=== PATIENT | female | born 1960 | race Two or more races ===

== ENCOUNTER 2025-09-01 13:02 | Inpatient (IN) | payer OTHER, MEDICAID, MEDICARE, SELFPAY ==
[2025-09-01] VITALS (9 sets, daily range): BP systolic 97–130; BP diastolic 65–85; PULSE 87–118; RESP 17–92; TEMP 37.9–40.1; O2SAT 92–96; BMI 39.0
--- NOTE | 2025-09-01 13:49 | XR_ITS ---
Examination: CT brain head without contrast. 2-D sagittal coronal reconstructions Date and time of exam:September 01, 2025, 1449 hrs., Comparison June 01, 2023 Indications: Onset seizures today CTDI: vol (mGy):55.6 DLP: (mGycm):1097 Technique: Multiple CT axial sections of the brain have been obtained, 5 mm slice thickness. Contrast has not been administered. 2-D sagittal, coronal reconstructions have been obtained Low dose protocols were performed. One or more of the following dose reduction techniques were used; automated exposure control, adjustment of the mA and/or KV according to patient size, use of iterative reconstruction technique. Findings: Moderate ventricular enlargement with significant atrophy Intra-axial or extra-axial hemorrhage density is not seen. No mass effect or midline shift Basal cisterns are not remarkable. Fourth ventricle is midline. Cranial vault intact. Acute right maxillary sinusitis Impression: Negative for acute hemorrhage, mass effect or midline shift Advise clinical correlation and follow-up accordingly
--- NOTE | 2025-09-01 13:49 | EKG_ITS ---
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
--- NOTE | 2025-09-01 13:49 | XR_ITS ---
Examination: AP chest single view Technique: Portable sitting AP chest single view Date and time: September 01, 2025, 1350 7:00 PM, comparison February 04, 2023 Indications: Fever beginning 2 days ago. Findings: Air distended stomach with elevation left hemidiaphragm, moderate Suspicious for early bilateral perihilar pneumonia. Mild enlargement cardiac contour with mild to moderate vascular congestion. The osseous structures are intact. Impression: Suspicious for early bilateral perihilar pneumonia
--- NOTE | 2025-09-01 13:51 | PD.EDRME ---
Rapid Medical Screening Exam E Arrival date/time: 09/01/25 13:02 This is a 64-year-old female that is brought in by daughter with multiple complaints. Per patient's daughter patient has a long history of Alzheimer's and was diagnosed approximately 10 years. Per patient's daughter she has been wheelchair bedbound for the last 2 to 3 years. Patient is nonverbal. Per daughter can eat a pur?e liquid diet. Per daughter patient is not acting her normal self. She had an episode where she was shaking and daughter did not know if she was having a seizure. Patient making noises that she typically does not do. Patient was recently seen by her primary doctor and it was suspected that she had a respiratory infection and was given Rocephin in the office. Per daughter that did not seem to help patient still having trouble breathing. I have greeted and performed a focused initial assessment of this patient. Initial appropriate labs ordered at this time. A comprehensive ED assessment and evaluation of the patient and analysis of all test and completion of medical decision making process will be conducted by additional ED provider. Chief Complaint: Flu Like Symptoms Time Seen by Provider: 09/01/25 13:31 Vital signs: Vital Signs Temperature 100.8 F H 09/01/25 13:28 Pulse Rate 109 H 09/01/25 13:28 Respiratory Rate 20 09/01/25 13:28 Blood Pressure 102/69 09/01/25 13:28 Pulse Oximetry (%) 93 L 09/01/25 13:28 Oxygen Delivery Method Room Air 09/01/25 13:28
--- NOTE | 2025-09-01 14:07 | PD.EDADULT ---
ED General RME/HPI General Chief complaint: Flu Like Symptoms Stated complaint: WHEEZING, CONGESTED, SHIVERING, DELUSIONAL Time Seen by Provider: 09/01/25 13:31 Arrival date/time: 09/01/25 13:02 CC: Throat congestion and now with seizure versus shaking HPI throat congestion has been ongoing for 3 weeks per family member. The patient is nonverbal and nonambulatory for at least 5 years. Daughter states that today she noticed that the patient was shaking and thought it was a seizure. Patient is making moaning sounds as she is wheeled in her wheelchair to the bed. RME / HPI RME / HPI narrative: 09/01/25 13:02 This is a 64-year-old female that is brought in by daughter with multiple complaints. Per patient's daughter patient has a long history of Alzheimer's and was diagnosed approximately 10 years. Per patient's daughter she has been wheelchair bedbound for the last 2 to 3 years. Patient is nonverbal. Per daughter can eat a pur?e liquid diet. Per daughter patient is not acting her normal self. She had an episode where she was shaking and daughter did not know if she was having a seizure. Patient making noises that she typically does not do. Patient was recently seen by her primary doctor and it was suspected that she had a respiratory infection and was given Rocephin in the office. Per daughter that did not seem to help patient still having trouble breathing. I have greeted and performed a focused initial assessment of this patient. Initial appropriate labs ordered at this time. A comprehensive ED assessment and evaluation of the patient and analysis of all test and completion of medical decision making process will be conducted by additional ED provider. Related Data Home Medications ?Medication ?Instructions ?Recorded ?Confirmed Losartan Potassium * (COZAAR *) 50 mg PO QDAY #0 tabs 07/03/14 04/10/18 DONEPEZIL HCL 10 mg PO QDAC ##0 02/12/17 04/10/18 Tramadol Hcl 50 mg PO PRN PRN PAIN ##0 02/12/17 04/10/18 meloxicam 15 mg tablet 15 mg PO QDAC ##0 02/12/17 04/10/18 memantine 10 mg tablet (Namenda) 10 mg PO BID #0 tabs 02/12/17 04/10/18 paroxetine HCl 20 mg tablet 20 mg PO QDAC ##0 02/12/17 04/10/18 risperidone 1 mg tablet (Risperdal) 1 mg PO BID #0 tabs 07/15/17 04/10/18 Previous Rx's ?Medication ?Instructions ?Recorded ibuprofen 600 mg tablet 600 mg PO Q6HR PRN PAIN #25 tabs 07/15/17 Allergies Allergy/AdvReac Type Severity Reaction Status Date / Time No Known Allergies Allergy Verified 09/01/25 13:06 Review of Systems Review of Systems ROS Unobtainable: unobtainable due to mental status Past Medical History Past Medical History NEUROLOGIC: Positive Neurological Disorders, Alzheimer's Disease and Migraine CARDIAC: Positive Cardiac Disorders and Hypertension; Negative Congestive Heart Failure RESPIRATORY: Negative Chronic Obstructive Pulmonary Disease (COPD) GASTROINTESTINAL: Positive Gastrointestinal Disorders and Gastroesophageal Reflux Disease GENITOURINARY: Negative Renal Disease MUSCULOSKELETAL: Positive Arthritis ENDOCRINE: Negative Diabetes Mellitus Type 1 or Diabetes Mellitus Type 2 PSYCHO/SOCIAL: Positive Depression OTHER HISTORY: Positive Blood Transfusions Social History SMOKING STATUS: Never smoker ED Exam Narrative Physical exam: [General: Obese, nonverbal Head normocephalic HEENT: Eyes pupils are PERRLA EOMs are intact. Mouth pink dry membranes uvula is midline swallow symmetrical. Nose: No rhinorrhea ears: EAC is occluded with cerumen TMs not visible. Neck is supple coarse end expiratory breath sounds, no stridor, no JVD Chest equal chest rise nontender to palpation Respiratory: Clear to auscultation no wheezes crackles or rubs CV: Rate rhythm is regular no murmurs rubs or clicks Abdomen is distended secondary to body habitus soft, no masses positive bowel sounds all 4 quadrants Back: No CVA tenderness no spinous process tenderness from cervical spine thoracic and lumbar spine Skin: Intact no petechiae rash induration ulceration or crepitus Extremities: Moving all extremity against resistance cap refill less than 2 seconds neurosensory intact Neuro: Baseline nonverbal nonambulatory. Course Course Course Narrative: At 2036, patient's temperature reported to be 104.2 of ordered 1 g of Tylenol IV. Laboratory results clinical finding imaging was discussed with the resident for Dr. Herrera, who agrees except the patient for sepsis UTI and fever. Quality Measures none Orders Category Date Time Status Bedside COVID-19 Antigen Test NOW Care 09/01/25 14:12 Active Physician Practice Coordinator STAT Care 09/01/25 14:15 Active Continuous Pulse Oximetry STAT Care 09/01/25 14:15 Completed EKG (ED ONLY) *Do not use* NOW Care 09/01/25 13:49 Completed In and Out Catheter X1 Care 09/01/25 14:09 Completed In and Out Catheter X1PRN Care 09/01/25 14:15 Completed Insert IV NOW Care 09/01/25 14:15 Active NPO STAT Care 09/01/25 14:15 Active Strict Intake and Output Routine Care 09/01/25 14:[address] abdomen pelvis wo con Stat Exams 09/01/25 16:[address] head/brain wo con Stat Exams 09/01/25 13:49 Completed EKG (ED Only) Stat Exams 09/01/25 13:49 Draft XR chest 1V Stat Exams 09/01/25 13:49 Completed BNP [B-Type Natriuretic Peptide] Stat Lab 09/01/25 14:33 Completed Blood Culture (Lab) Stat Lab 09/01/25 13:50 Ordered Blood Culture (Lab) Stat Lab 09/01/25 14:35 Received CBC Stat Lab 09/01/25 14:33 Completed Comprehensive Metabolic Panel Stat Lab 09/01/25 14:33 Completed Influenza A & B Rapid Panel Stat Lab 09/01/25 14:56 Completed LDH (Lactate Dehydrogenase) Stat Lab 09/01/25 14:33 Completed Lactate (Lactic Acid) Stat Lab 09/01/25 14:33 Completed Lactic Acid, 3 HR Stat Lab 09/01/25 18:06 Completed Lipase Stat Lab 09/01/25 14:33 Completed Magnesium Stat Lab 09/01/25 14:33 Completed PT [Prothrombin Time with INR] Stat Lab 09/01/25 14:33 Completed Partial Thromboplastin Time Stat Lab 09/01/25 14:33 Completed Phosphorous Stat Lab 09/01/25 14:33 Completed Procalcitonin Stat Lab 09/01/25 14:33 Completed Troponin I Stat Lab 09/01/25 14:33 Completed Urinalysis, C/S if Indicated Stat Lab 09/01/25 14:33 Completed Urine Culture Stat Lab 09/01/25 14:33 Received Acetaminophen Ivpb [Ofirmev Inj] Med 09/02/25 00:00 Discontinued 1,000 mg in 100 ml IV Q6HR Acetaminophen Ivpb [Ofirmev Inj] Med 09/01/25 20:38 Active 1,000 mg in 100 ml IV X1 Acetaminophen Supp [Tylenol Supp] Med 09/01/25 14:01 Discontinued 650 mg NH X1 ONE Ringers Lactated 1000 ml [Lactated Ringers] 1,000 ml Med 09/01/25 15:01 Discontinued IV 999 mls/hr Ringers Lactated 1000 ml [Lactated Ringers] 1,000 ml Med 09/01/25 15:01 Discontinued IV 999 mls/hr cefTRIAXone/D5w 1gm IV premix [Rocephin/D5w 1gm IV Med 09/01/25 15:02 Discontinued premix] 1 gm in 50 ml IV X1 Oxygen Delivery NOW RT 09/01/25 14:15 Active Vital Signs Vital signs: Vital Signs Temperature 100.8 F H 09/01/25 13:28 Pulse Rate 109 H 09/01/25 13:28 Respiratory Rate 20 09/01/25 13:28 Blood Pressure 102/69 09/01/25 13:28 Pulse Oximetry (%) 93 L 09/01/25 13:28 Oxygen Delivery Method Room Air 09/01/25 13:28 Discharge Plan Plan Patient Disposition: Other Care w/in Hosp (SDC/COY) Prescriptions/Referrals Prescriptions/Med Rec: No Action Losartan Potassium * (COZAAR *) 50 MG tablet 50 mg PO QDAY Qty: 0 meloxicam 15 MG tablet 15 mg PO QDAC Qty: 0 paroxetine HCl 20 MG tablet 20 mg PO QDAC Qty: 0 memantine [Namenda] 10 MG tablet 10 mg PO BID Qty: 0 DONEPEZIL HCL 10 MG TAB.RAPDIS 10 mg PO QDAC Qty: 0 Tramadol Hcl 50 MG tablet 50 mg PO PRN PRN (Reason: PAIN) Qty: 0 risperidone [Risperdal] 1 MG tablet 1 mg PO BID Qty: 0 ibuprofen 600 MG tablet 600 mg PO Q6HR PRN (Reason: PAIN) Qty: 25 0RF Referrals: Nito Presley MD [Primary Care Provider, Family Practice] - In 1 week Problem List Clinical Impression: UTI (urinary tract infection) Patient/Caregiver Discharge Instructions Print Language: Swiss Stand Alone Forms: [place] Award Info., Patient Portal Info Letter PA/MECHATRONICS TECHNICIAN Supervising Physician PA/MECHATRONICS TECHNICIAN Supervising Physician: Mustapha Dinero ENP [facility] Clinical Information Provided by: patient and family Medical Records reviewed [facility] Meds/Rx considered, not ordered None Labs/Rad/Tests considered, not ordered None Chronic Illness/Social Conditions Explain: Dementia nonverbal nonambulatory EKG Interpretation EKG #1: EKG Interpretation: EKG performed at 1355 shows a ventricular rate of 112 NH interval 166 QRS of 88 QTc of 380 this is sinus tachycardia nonspecific T wave abnormalities. Labs Labs: interpreted by wa Lab(s) Interpretation(s): CBC shows leukocytosis 17.3 no bandemia. No thrombocytopenia Coags within acceptable limits CMP shows no significant electrolyte imbalances other than glucose of 134 no transaminitis or T. bili elevation. Lactic acid of 3.1 Urine yellow hazy 1+ protein 2+ blood leukocyte esterase positive RBCs at 12 WBCs at 232, 1+ bacteria. No squamous epithelial or Influenza AB and COVID are all negative. Imaging Imaging Interpretation(s): CT of the head is negative for any acute finding requires emergent or immediate intervention. Chest x-ray is read as suspicious for bilateral pneumonia. Medication Administration(s) Medication Administration History Acetaminophen (Ofirmev Inj) 1,000 mg in 100 mls @ 250 mls/hr IV X1 ONE Stop: 09/01/25 21:01 Discontinued Medications Acetaminophen (Acetaminophen Supp 650 Mg Supp) 650 mg NH X1 ONE Stop: 09/01/25 14:02 Last Admin: 09/01/25 14:59 Dose: 650 mg Documented By: Lactated Ringer's (Lactated Ringers) 1,000 mls @ 999 mls/hr IV .Q1H1M ONE Stop: 09/01/25 16:01 Last Infusion: 09/01/25 16:12 Dose: Infused Documented By: Admin: 09/01/25 15:06 Dose: 999 mls/hr Documented By: BY Lactated Ringer's (Lactated Ringers) 1,000 mls @ 999 mls/hr IV .Q1H1M ONE Stop: 09/01/25 16:01 Last Infusion: 09/01/25 17:24 Dose: Infused Documented By: Admin: 09/01/25 16:03 Dose: 999 mls/hr Documented By: GM Ceftriaxone Sodium/Dextrose (Rocephin/D5w 1gm Iv Premix) 1 gm in 50 mls @ 100 mls/hr IV X1 ONE Stop: 09/01/25 15:31 Last Infusion: 09/01/25 16:35 Dose: Infused Documented By: Admin: 09/01/25 16:03 Dose: 100 mls/hr Documented By: CORBY Acetaminophen (Ofirmev Inj) 1,000 mg in 100 mls @ 250 mls/hr IV Q6HR VASYL Stop: 09/02/25 18:23
[2025-09-01 14:48] LABS: Lactate (Lactic Acid) 3.1 mMol/L (0.4-2.0)
[2025-09-01 14:51] LABS: Basophils # (Auto) 0.1 Thou/mm3 (0.0-0.2); Basophils % (Auto) 1 % (0-2.5); Eosinophils # (Auto) 0.0 Thou/mm3 (0.0-0.5); Eosinophils % (Auto) 0 % (0-10); Hematocrit 44.0 % (36.0-46.0); Hemoglobin 14.6 g/dL (12.0-16.0); Immature Granulocytes Auto 0.09 Thou/mm3 (0.00-0.00); Lymphocytes # (Auto) 1.0 Thou/mm3 (1.0-4.8); Lymphocytes % (Auto) 6 % (10-50); Mean Corpuscular HGB Conc 33.2 g/dl (31.0-37.0); Mean Corpuscular Hemoglobin 31.1 pg (25.0-35.0); Mean Corpuscular Volume 94 fL (80-100); Monocytes # (Auto) 1.5 Thou/mm3 (0.0-0.8); Monocytes % (Auto) 9 % (0-12); Neutrophils # (Auto) 14.6 Thou/mm3 (1.8-7.7); Neutrophils % (Auto) 84 % (37-80); Nucleated Red Blood Cell # 0.00 Thou/mm3 (0.00-0.00); Nucleated Red Blood Cell % 0 /100 WBC (0); Platelet Count 207 Thou/mm3 (140-440); RDW Standard Deviation 44.2 fL (36.4-46.3); Red Blood Count 4.70 Miln/mm3 (4.00-5.20); White Blood Count 17.3 Thou/mm3 (3.6-11.0)
[2025-09-01 14:54] LABS: Collection Type, Urine Catheter
[2025-09-01] MEDS: ACETAMINOPHEN SUPP 650 MG SUPP PR (14:59)
[2025-09-01] MEDS: RINGERS LACTATED 1000 ML 1,000 ML 999 ML IV ×2 (15:06→16:03)
[2025-09-01 15:09] LABS: INR 1.0 (0.9-1.3); Partial Thromboplastin Time 26.3 Seconds (22.0-36.0); Prothrombin Time 10.9 Seconds (9.0-12.2)
[2025-09-01 15:17] LABS: Alanine Aminotransferase 31 U/L (10-49); Albumin, Serum 4.7 gm/dL (3.4-4.8); Albumin/Globulin Ratio 1.6 (1.2-2.2); Alkaline Phosphatase 67 U/L (46-116); Anion Gap 12 (7-16); Aspartate Amino Transferase 21 U/L (0-34); BUN/Creatinine Ratio 15 Ratio (12-20); Bilirubin,Total 0.9 mg/dL (0.3-1.2); Blood Urea Nitrogen 12 mg/dL (9-23); Calcium 9.4 mg/dL (8.3-10.6); Calcium (Corrected) 9.4 mg/dL (8.5-10.1); Carbon Dioxide 22.8 mMol/L (20.0-31.0); Chloride 107 mMol/L (98-107); Creatinine (Component) 0.8 mg/dL (0.6-1.3); Estimated Creatinine Clearance 71.3 mL/min (>60); Globulin 3.0 gm/dL (2.3-3.5); Glucose 134 mg/dL (74-106); LDH (Lactate Dehydrogenase) 198 U/L (120-246); Lipase 31 U/L (12-53); Magnesium 2.0 mg/dL (1.6-2.6); Osmolality,Calculated 284 (275-295); Phosphorous 2.4 mg/dL (2.4-5.1); Potassium 3.7 mMol/L (3.4-5.1); Procalcitonin 0.14 ng/ml (0.0-0.49); Sodium 142 mMol/L (136-145); Total Protein 7.7 gm/dL (5.7-8.2); Troponin I < 0.002 ng/mL (0.0-0.045); eGFR > 60 See Note
[2025-09-01 15:25] LABS: Influenza A Ag Negative; Influenza B Ag Negative
[2025-09-01 15:36] LABS: Bacteria,Urine 1+; Bilirubin,Urine Negative (Negative); Blood,Urine 2+ (Negative); Color,Urine Yellow (Lt Yel-Yel); Glucose, Urine Negative (Negative); Ketones,Urine Negative (Negative); Leukocyte Esterase,Urine Positive (Negative); Nitrite,Urine Negative (Negative); PH,Urine 5.5 (5.0-7.0); Protein,Urine 1+ (Neg - Trace); RBC,Urine 12 /hpf (0-3); Specific Gravity,Urine 1.021 (1.001-1.035); Squamous Epithelial Cell,Urine 1 /hpf (0-5); Urobilinogen,Urine Negative mg/dL (0.0-1.0); WBC,Urine 232 /hpf (0-5)
[2025-09-01 15:37] LABS: Clarity,Urine Hazy (Clear/Hazy); Culture Indicated,Urine Yes
[2025-09-01 16:03] LABS: B-Type Natriuretic Peptide < 20 pg/mL (0-100)
[2025-09-01] MEDS: cefTRIAXone/D5w 1gm IV premix 1 GM/50 ML BAG IV (16:03)
--- NOTE | 2025-09-01 16:35 | XR_ITS ---
Examination: CT abdomen and pelvis without contrast. Coronal 3-D reconstructions. Sagittal 2-D reconstructions. Date and time of exam:September 01, 2025 1653 hrs. Indications: Sepsis alert today CTDI: vol (mGy): 20.6 DLP: (mGycm): 1170 Technique: Axial images of the abdomen have been obtained, 3 mm slice thickness Intravenous contrast material has not been administered. Low dose protocols were performed. One or more of the following dose reduction techniques were used; automated exposure control, adjustment of the mA and/or KV according to patient size, use of iterative reconstruction technique. Findings: Atelectasis in the lower lung zones with minimal pleural fluid Fatty infiltration throughout the liver, hepatomegaly 24 cm Contracted gallbladder. Spleen is not enlarged No pancreatic or adrenal mass No renal or ureteral calculi, no hydronephrosis Aorta normal size Normal appendix No bowel obstruction Colonic diverticulosis, no diverticulitis Absent uterus Urinary bladder wall shows irregular thickening up to 12 mm Moderate degenerative disc disease lower dorsal levels and L5-S1 Impression: Significant hepatomegaly, fatty infiltration throughout the liver No renal or ureteral calculi, no hydronephrosis Normal appendix Colonic diverticulosis, no diverticulitis Abnormal thickening of the urinary bladder wall up to 12 mm, differential would include cystitis, early bladder carcinoma not excluded, clinical correlation and follow-up advised
[2025-09-01 17:55] LABS: Reflex Lactate? Y
[2025-09-01 18:12] LABS: Lactic Acid, 3 HR 2.5 mMol/L (0.4-2.0)
[2025-09-01] MEDS: ACETAMINOPHEN IVPB 1,000 MG/100 ML VIAL 250 MG IV (20:44)
[2025-09-01] MEDS: RINGERS LACTATED 1000 ML 1,000 ML 75 ML IV (21:47)
[2025-09-01] MEDS: AZITHROMYCIN INJ 500 MG in SODIUM CHLORIDE 0.9% 250 ML 250 ML 250 MG IV (21:47)
[2025-09-01] MEDS: HEPARIN SOD INJ 5000 UNIT/ML VIAL SC (21:49)
[2025-09-01] MEDS: ALBUTEROL/IPRATROPIUM (Duoneb) RT SOL 3 ML NEBU INH (22:14)
--- NOTE | 2025-09-01 22:42 | PD.RESHP ---
Documentation for date of: 09/01/25 HPI History of Present Illness History of present illness: Ms. Jackson is a 64 y/o woman with PMH bedbound and nonverbal 2/2 Alzheimer's disease, HTN, HLD, asthma (not on home inhalers) who presents to the ED on 09/01 for a witnessed generalized shaking episode c/f seizure that lasted 10-15 min that resolved on its own i/s/o recent respiratory infection. She is accompanied by daughter, Caren, who provides history. Patient has had a productive cough for about 3 weeks that worsened 3 days ago. She was seen in outpatient clinic 1 week ago and given one dose of Rocephin IM, but patient continued to be symptomatic. Denies subjective fever at home. She is able to cough mucus up but cannot spit it out. Patient's daughter has been using suction in ED but does not have this at home. Denies recent illnesses or hospitalizations prior to 3 weeks of cough. Patient has had 1 UTI / year for the past 3 years. Denies hx of COPD or seizures, not on home O2. Patient has never had an episode like this before. ED course: T 104.2, HR 109-118, RR 20-24, spO2 93% RA --> 96% 2L, BP 97/65 - 102/69. Labs significant for WBC 17.3 with neutrophilic predominance. LA 3.1 --> 2.5 after fluids. UA 1+ protein, 2+ blood, 12 RBC, 232 WBC, 1+ bacteria. Pending blood and urine cx. CXR showed perihilar opacities c/f PNA, vascular congestion, distended stomach. EKG sinus tachy 112, QTc 429. CT a/p showed cystitis max 12 mm, hepatomegaly (w/ fatty infiltration). Meds given: Tylenol 650 mg PO, Tylenol 1g IV, 2L LR, Ceftriaxone 1g IV x1. PMHx: bedbound and nonverbal 2/2 Alzheimer's disease, asthma Allergies: NKDA Home meds: Lorazapam BID, Memantine BID, Losartan, Risperidone BID, Simvastatin daily, Citalopram daily (no doses listed). Pending med rec. Pharmacy: [facility] SgHx: Hysterectomy SHx: Denies tobacco, EtOH, recreational drug use. Lives at home with daughter. FHx: Mom - Alzheimer's, Dad - T2DM Review of Systems Review of Systems Narrative Review of Systems: 14 point ROS negative other than HPI Exam Vital Signs Temp Pulse Resp BP Pulse Ox O2 Del Method O2 Flow Rate 101 F H 96 18 107/85 H 94 L Nasal Cannula 2 09/01/25 22:00 09/01/25 22:00 09/01/25 22:00 09/01/25 22:00 09/01/25 22:00 09/01/25 22:00 09/01/25 22:00 Narrative Exam General: Lying in bed, acute distress, non-toxic appearing Eye: PERRL, EOMI HENT: Normocephalic, atraumatic Neck: Supple, non-tender, no JVD Lungs: Shallow breaths, some crackles throughout, productive cough symmetric chest rise, no use of accessory muscles. Desat to 92% on RA, requiring 2L O2 for appropriate spO2. Heart: Normal S1 and S2, no S3 or S4 appreciated. Normal rate and regular rhythm, no murmurs, rubs gallops, or edema. Peripheral pulses intact bilaterally, capillary refill brisk distally Abdomen: Soft, non-tender,distended, normal bowel sounds. No guarding or rebound tenderness. Musculoskeletal: Normal range of motion and strength, no tenderness or swelling Skin: Skin is warm, dry, no rashes or lesions. Neurologic: Awake and alert. Nonverbal and nonambulatory at baseline. Does not follow commands. Results: Labs 09/01/25 14:33 09/01/25 14:33 Labs: Short CBC 09/01/25 Range/Units 14:33 WBC 17.3 H (3.6-11.0) Thou/mm3 Hgb 14.6 (12.0-16.0) g/dL Hct 44.0 (36.0-46.0) % Plt Count 207 (140-440) Thou/mm3 BMP 09/01/25 14:33 Sodium 142 Potassium 3.7 Chloride 107 Carbon Dioxide 22.8 BUN 12 Creatinine 0.8 Glucose 134 H Calcium 9.4 Cardiac Enzymes 09/01/25 Range/Units 14:33 Troponin I < 0.002 (0.0-0.045) ng/mL Liver Function 09/01/25 Range/Units 14:33 Total Bilirubin 0.9 (0.3-1.2) mg/dL AST 21 (0-34) U/L ALT 31 (10-49) U/L Alkaline Phosphatase 67 (46-116) U/L Albumin 4.7 (3.4-4.8) gm/dL Urine 09/01/25 Range/Units 14:33 Urine Color Yellow (Lt Yel-Yel) Urine Clarity Hazy (Clear/Hazy) Urine pH 5.5 (5.0-7.0) Ur Specific [place] 1.021 (1.001-1.035) Urine Protein 1+ A (Neg - Trace) Urine Glucose (UA) Negative (Negative) Quality Measures Quality Measures none Medications Home Medications and Allergies Home Medications ?Medication ?Instructions ?Recorded ?Confirmed ?Type Losartan Potassium * (COZAAR *) 50 mg PO QDAY #0 tabs 07/03/14 09/02/25 History DONEPEZIL HCL 10 mg PO QDAC ##0 02/12/17 04/10/18 History Tramadol Hcl 50 mg PO PRN PRN PAIN ##0 02/12/17 04/10/18 History meloxicam 15 mg tablet 15 mg PO QDAC ##0 02/12/17 04/10/18 History memantine 10 mg tablet (Namenda) 10 mg PO BID #0 tabs 02/12/17 09/02/25 History paroxetine HCl 20 mg tablet 20 mg PO QDAC ##0 02/12/17 04/10/18 History risperidone 1 mg tablet (Risperdal) 1 mg PO BID #0 tabs 07/15/17 09/02/25 History citalopram 20 mg tablet 20 mg PO HS 09/02/25 09/02/25 History lorazepam 1 mg tablet 1 mg PO BID 09/02/25 09/02/25 History simvastatin 20 mg tablet 20 mg PO HS 09/02/25 09/02/25 History Allergies Allergy/AdvReac Type Severity Reaction Status Date / Time No Known Allergies Allergy Verified 09/01/25 13:06 Visit Medications Acetaminophen (Acetaminophen 325 Mg Tablet) 650 mg PO Q6H PRN PRN Reason: Fever >101.5 Stop: 10/01/25 21:21 Acetaminophen (Acetaminophen 325 Mg Tablet) 650 mg PO Q6H PRN PRN Reason: PAIN SCALE 1-3 (mild Stop: 10/01/25 21:21 Albuterol/Ipratropium (Albuterol/Ipratropium (Duoneb) Rt Margarita 3 Ml Nebu) 3 ml INH Q4HRRT SILVIA Stop: 10/01/25 22:59 Last Admin: 09/01/25 22:14 Dose: 3 ml Guaifenesin (Guaifenesin Syrup 200 Mg/10 Ml Udc) 100 mg PO QID PRN; Protocol PRN Reason: COUGH Stop: 10/01/25 21:27 Heparin Sodium (Porcine) (Heparin Sod Inj 5000 Unit/Ml Vial) 5,000 unit SC Q8HR SILVIA Stop: 09/15/25 21:59 Last Admin: 09/01/25 21:49 Dose: 5,000 unit Lactated Ringer's (Lactated Ringers) 1,000 mls @ 75 mls/hr IV .[id number] SILVIA Stop: 10/01/25 21:29 Last Admin: 09/01/25 21:47 Dose: 75 mls/hr Ceftriaxone Sodium/Dextrose (Rocephin/D5w 1gm Iv Premix) 1 gm in 50 mls @ 100 mls/hr IV QDAY [facility] Stop: 09/08/25 21:25 Azithromycin 500 mg/ Sodium (Chloride) 250 mls @ 250 mls/hr IV QDAY SILVIA Stop: 09/08/25 21:26 Azithromycin 500 mg/ Sodium (Chloride) 250 mls @ 250 mls/hr IV X1 ONE Stop: 09/01/25 22:44 Last Admin: 09/01/25 21:47 Dose: 250 mls/hr Ibuprofen (Ibuprofen Tab 400 Mg Tablet) 400 mg PO Q6HR PRN PRN Reason: Fever > 100.3 Stop: 10/01/25 21:21 Ondansetron HCl (Ondansetron Inj 2 Mg/Ml Inj 2 Ml) 4 mg IVP Q6H PRN; Protocol PRN Reason: NAUSEA OR VOMITING Stop: 10/01/25 21:21 Discontinued Medications Acetaminophen (Acetaminophen Supp 650 Mg Supp) 650 mg DE X1 ONE Stop: 09/01/25 14:02 Last Admin: 09/01/25 14:59 Dose: 650 mg Lactated Ringer's (Lactated Ringers) 1,000 mls @ 999 mls/hr IV .Q1H1M ONE Stop: 09/01/25 16:01 Last Infusion: 09/01/25 16:12 Dose: Infused Lactated Ringer's (Lactated Ringers) 1,000 mls @ 999 mls/hr IV .Q1H1M ONE Stop: 09/01/25 16:01 Last Infusion: 09/01/25 17:24 Dose: Infused Ceftriaxone Sodium/Dextrose (Rocephin/D5w 1gm Iv Premix) 1 gm in 50 mls @ 100 mls/hr IV X1 ONE Stop: 09/01/25 15:31 Last Infusion: 09/01/25 16:35 Dose: Infused Acetaminophen (Ofirmev Inj) 1,000 mg in 100 mls @ 250 mls/hr IV Q6HR SILVIA Stop: 09/02/25 18:23 Acetaminophen (Ofirmev Inj) 1,000 mg in 100 mls @ 250 mls/hr IV X1 ONE Stop: 09/01/25 21:01 Last Infusion: 09/01/25 21:08 Dose: Infused Sodium Chloride (Sodium Chloride Rt 10% 15 Ml Nebu) 5 ml INH X1 ONE Stop: 09/01/25 21:23 Assessment & Plan Plan Ms. Jackson is a 64 y/o woman with PMH bedbound and nonverbal 2/2 Alzheimer's disease, HTN, HLD, asthma who presents to the ED on 09/01 for a witnessed generalized shaking episode c/f seizure that lasted 10-15 min that resolved on its own i/s/o recent respiratory infection. She is accompanied by daughter, Caren, who provides history. Patient has had a productive cough for about 3 weeks that worsened 3 days ago. She was seen in outpatient clinic 1 week ago and given one dose of Rocephin IM, but patient continued to be symptomatic. Denies subjective fever at home. She is able to cough mucus up but cannot spit it out. Patient's daughter has been using suction in ED but does not have this at home. Denies recent illnesses or hospitalizations prior to 3 weeks of cough. Patient has had 1 UTI / year for the past 3 years. Denies hx of COPD or seizures, not on home O2. Patient has never had an episode like this before. #Sepsis 2/2 UTI vs PNA #Acute on chronic hypoxic respiratory failure #Community acquired pneumonia Productive cough x3 weeks (acutely worsening x 3 days) with fever, tachycardia, tachypnea, spO2 desatting requiring supplemental O2, leukocytosis w/ neutrophilic predominance, and perihilar opacities on CXR c/f PNA LA 3.1 --> 2.5 after fluids Given Tylenol 650 mg PO, Tylenol 1g IV, 2L LR, Ceftriaxone 1g IV x1 Plan: - Pending blood cx, sputum cx and gram stain - Ceftriaxone 1g IV daily and Azithromycin 500 mg IV daily for gram positive, gram negative, and atypical coverage - Duoneb q4h with frequent suctioning - Continuous pulse ox with supplemental O2 PRN. Wean as tolerated when appropriate - Guaifenesin QID - LR 75 mL/hr #UTI Hx 1 UTI/yr x 3 years Plan: - Pending urine cx - Ceftriaxone 1g IV daily #Witnessed shaking Pt has no hx of seizures Plan: - Management of CAP and UTI as above - Likely shivers as patient had temp of 104.5 #Hypertension Home med: Losartan (unkonwn dose) Plan: - Pending med rec - Hold antihypertensives given soft BP at this time #Hyperlipidemia Home med: simvastatin (unknown dose) Plan: - Pending med rec #Abdominal distension Patient has not had a BM today, had a normal BM yesterday Plan: - Doc/senna silvia daily #Alzheimer's disease Nonverbal, nonambulatory at baseline Home meds: Lorazapam BID, Memantine BID, Risperidone BID, Citalopram daily Plan: - Pending med rec - Started Lorazapam 0.5 mg PO BID, Risperidone 1 mg PO BID, Citalopram 10 mg PO daily . Can change once med rec results Checklist Dispo: Admit to med tele for IV abx Diet: NPO pending swallow study. At home, pt eats pur?e liquid diet. Bowel Reg: Doc-senna silvia daily VTE ppx: heparin subQ GI ppx: n/a Pain mgmt: Tylenol PRN Code status: DNR Plan discussed with Dr. Whelan and Dr. oJse Broussard MD PGY1 Attending Provider Attestation/Addendum After examination of the patient and review of the clinical data I feel that this patient needs admission to the hospital for further treatment/evaluation. Plan of care discussed with patient and is in agreement. I Jonathon Garcia MD, attest that I was physically present for xie portions of evaluation, and examined patient, labs and imagings and plan of care were discussed with IM residents team, and I agree with the findings and plans documented above.
--- NOTE | 2025-09-01 23:19 | PC.NURSE ---
Report given to CHARO Stark
[2025-09-02] VITALS (17 sets, daily range): BP systolic 90–114; BP diastolic 56–77; PULSE 81–115; RESP 18–22; TEMP 36.1–38.4; O2SAT 89–98; BMI 35.2
[2025-09-02 05:34] LABS: Basophils # (Auto) 0.1 Thou/mm3 (0.0-0.2); Basophils % (Auto) 1 % (0-2.5); Eosinophils # (Auto) 0.0 Thou/mm3 (0.0-0.5); Eosinophils % (Auto) 0 % (0-10); Hematocrit 44.7 % (36.0-46.0); Hemoglobin 14.5 g/dL (12.0-16.0); Immature Granulocytes Auto 0.08 Thou/mm3 (0.00-0.00); Lymphocytes # (Auto) 1.0 Thou/mm3 (1.0-4.8); Lymphocytes % (Auto) 7 % (10-50); Mean Corpuscular HGB Conc 32.4 g/dl (31.0-37.0); Mean Corpuscular Hemoglobin 31.4 pg (25.0-35.0); Mean Corpuscular Volume 97 fL (80-100); Monocytes # (Auto) 0.2 Thou/mm3 (0.0-0.8); Monocytes % (Auto) 1 % (0-12); Neutrophils # (Auto) 14.0 Thou/mm3 (1.8-7.7); Neutrophils % (Auto) 91 % (37-80); Nucleated Red Blood Cell # 0.00 Thou/mm3 (0.00-0.00); Nucleated Red Blood Cell % 0 /100 WBC (0); Platelet Count 161 Thou/mm3 (140-440); RDW Standard Deviation 45.9 fL (36.4-46.3); Red Blood Count 4.62 Miln/mm3 (4.00-5.20); White Blood Count 15.4 Thou/mm3 (3.6-11.0)
[2025-09-02 06:01] LABS: Anion Gap 13 (7-16); BUN/Creatinine Ratio 11 Ratio (12-20); Blood Urea Nitrogen 9 mg/dL (9-23); Calcium 9.0 mg/dL (8.3-10.6); Carbon Dioxide 23.6 mMol/L (20.0-31.0); Chloride 106 mMol/L (98-107); Creatinine (Component) 0.8 mg/dL (0.6-1.3); Estimated Creatinine Clearance 67.3 mL/min (>60); Glucose 180 mg/dL (74-106); Magnesium 1.8 mg/dL (1.6-2.6); Osmolality,Calculated 288 (275-295); Phosphorous 3.1 mg/dL (2.4-5.1); Potassium 4.0 mMol/L (3.4-5.1); Sodium 143 mMol/L (136-145); eGFR > 60 See Note
[2025-09-02] MEDS: ALBUTEROL/IPRATROPIUM (Duoneb) RT SOL 3 ML NEBU INH ×5 (06:19→23:18)
[2025-09-02] MEDS: HEPARIN SOD INJ 5000 UNIT/ML VIAL SC ×3 (07:28→21:13)
[2025-09-02 09:04] LABS: Lactate (Lactic Acid) 2.1 mMol/L (0.4-2.0)
--- NOTE | 2025-09-02 09:19 | PC.SS ---
Follow up note: On IV antibiotic.
[2025-09-02] MEDS: PIPER/TAZO 3.375 GM PREMIX 3.375 GM/50 ML BAG IV ×3 (09:46→21:13)
[2025-09-02] MEDS: Magnesium Sulfate 4 GM Ivpb 4 GM/50 ML BAG IV (09:46)
[2025-09-02] MEDS: VANCOMYCIN/NS 1 GM IVPB 200 ML IV ×2 (11:14→22:04)
--- NOTE | 2025-09-02 11:53 | PCS.ST ---
Swallowing evaluation completed. See report for details. Oral dysphagia. No s/s of aspiration. Needs minced moist diet.
--- NOTE | 2025-09-02 11:56 | ESPR_ITS ---
<Statement entered by Lemuel Torres MD - 09/02/25 18:47> I have personally seen and examined the patient. I agree with the medical student's assessment and plan as documented below. Lemuel Torres DO PGY-2 Internal Medicine - GME Documentation for date of: 09/02/25 Subjective Subjective Interval history: No acute events overnight. Patient is nonverbal at baseline due to history of Alzheimer's, she was last known to be talking about 5 years ago. Patient was asleep on encounter. Daughter reported that patient is usually more alert than current state and communicates via hand movements and yelling for food or when in pain. Patient has history of hemorrhoids as well that causes constipation. Patient's last bowel movement was last Tuesday. She takes Miralax for the constipation. Today patient has continued productive cough and is on room air. She does not take oxygen at home. Exam Vital Signs Temp Pulse Resp BP Pulse Ox O2 Del Method O2 Flow Rate 98.3 F 98 20 90/62 93 L Room Air 3 09/02/25 11:17 09/02/25 11:17 09/02/25 11:17 09/02/25 11:17 09/02/25 11:17 09/02/25 11:17 09/02/25 10:48 Narrative Exam General: Patient asleep, snoring loudly, in mild distress. Appears lethargic and not alert. Nonverbal and nonambulatory. HEENT: Normocephalic, atraumatic. PERRLA, EOMI. Audible upper airway congestion. Cardiac: Regular rate and rhythm, normal S1/S2, no murmurs, rubs, or gallops. Peripheral pulses 2+ and symmetric. No peripheral edema. Lungs: Mildly increased work of breathing. Productive cough with thick phlegm noted. Auscultation limited; no distinct crackles or wheezes appreciated. Abdomen: Soft, non-tender, non-distended. Extremities: Warm, well-perfused. Skin: Warm, dry, intact. No rashes, lesions, or ecchymoses. Neuro: Lethargic, nonverbal, not following commands. Objective Labs 09/03/25 05:05 09/03/25 05:05 Labs: Laboratory Results - last 24 hr 09/01/25 09/01/25 09/01/25 14:33 14:56 18:06 WBC 17.3 H RBC 4.70 Hgb 14.6 Hct 44.0 MCV 94 MCH 31.1 MCHC 33.2 RDW Std Deviation 44.2 Plt Count 207 Neut % (Auto) 84 H Lymph % (Auto) 6 L [place] % (Auto) 9 Eos % (Auto) 0 Baso % (Auto) 1 Neut # (Auto) 14.6 H Lymph # (Auto) 1.0 [place] # (Auto) 1.5 H Eos # (Auto) 0.0 Baso # (Auto) 0.1 Immature Gran # (Auto) 0.09 H Absolute Nucleated RBC 0.00 Immature Gran % 1 H Nucleated RBC % 0 PT 10.9 INR 1.0 APTT 26.3 Sodium 142 Potassium 3.7 Chloride 107 Carbon Dioxide 22.8 Anion Gap 12 BUN 12 Creatinine 0.8 Estim Creat Clear Calc 71.3 eGFR > 60 BUN/Creatinine Ratio 15 Glucose 134 H Calculated Osmolality 284 Lactic Acid 3.1 H 2.5 H Calcium 9.4 Corrected Calcium 9.4 Phosphorus 2.4 Magnesium 2.0 Total Bilirubin 0.9 AST 21 ALT 31 Alkaline Phosphatase 67 Lactate Dehydrogenase 198 Troponin I < 0.002 B-Natriuretic Peptide < 20 Total Protein 7.7 Albumin 4.7 Globulin 3.0 Albumin/Globulin Ratio 1.6 Lipase 31 Procalcitonin 0.14 Ur Collection Type Catheter Urine Color Yellow Urine Clarity Hazy Urine pH 5.5 Ur Specific [place] 1.021 Urine Protein 1+ A Urine Glucose (UA) Negative Urine Ketones Negative Urine Blood 2+ A Urine Nitrite Negative Urine Bilirubin Negative Urine Urobilinogen (Auto) Negative Ur Leukocyte Esterase Positive Urine RBC 12 H Urine WBC 232 H Ur Squamous Epith Cells 1 Urine Bacteria 1+ A Ur Culture Indicated? Yes Influenza A (Rapid) Negative Influenza B (Rapid) Negative 09/02/25 09/02/25 05:21 08:49 WBC 15.4 H RBC 4.62 Hgb 14.5 Hct 44.7 MCV 97 MCH 31.4 MCHC 32.4 RDW Std Deviation 45.9 Plt Count 161 D Neut % (Auto) 91 H Lymph % (Auto) 7 L [place] % (Auto) 1 Eos % (Auto) 0 Baso % (Auto) 1 Neut # (Auto) 14.0 H Lymph # (Auto) 1.0 [place] # (Auto) 0.2 Eos # (Auto) 0.0 Baso # (Auto) 0.1 Immature Gran # (Auto) 0.08 H Absolute Nucleated RBC 0.00 Immature Gran % 1 H Nucleated RBC % 0 PT INR APTT Sodium 143 Potassium 4.0 Chloride 106 Carbon Dioxide 23.6 Anion Gap 13 BUN 9 Creatinine 0.8 Estim Creat Clear Calc 67.3 eGFR > 60 BUN/Creatinine Ratio 11 L Glucose 180 H Calculated Osmolality 288 Lactic Acid 2.1 H Calcium 9.0 Corrected Calcium Phosphorus 3.1 Magnesium 1.8 Total Bilirubin AST ALT Alkaline Phosphatase Lactate Dehydrogenase Troponin I B-Natriuretic Peptide Total Protein Albumin Globulin Albumin/Globulin Ratio Lipase Procalcitonin Ur Collection Type Urine Color Urine Clarity Urine pH Ur Specific [place] Urine Protein Urine Glucose (UA) Urine Ketones Urine Blood Urine Nitrite Urine Bilirubin Urine Urobilinogen (Auto) Ur Leukocyte Esterase Urine RBC Urine WBC Ur Squamous Epith Cells Urine Bacteria Ur Culture Indicated? Influenza A (Rapid) Influenza B (Rapid) Quality Measures Quality Measures none Assessment & Plan Assessment Current Active Medications: Generic Name Dose Route Start Last Admin Trade Name Freq PRN Reason Stop Dose Admin Acetaminophen 650 mg 09/01/25 21:22 Acetaminophen 325 Mg Tablet PO 10/01/25 21:21 Q6H PRN PAIN SCALE 1-3 (mild Acetaminophen 650 mg 09/02/25 08:13 Acetaminophen 325 Mg Tablet PO 10/01/25 21:21 Q6H PRN Fever >100.3 Protocol Albuterol/Ipratropium 3 ml 09/01/25 23:00 09/02/25 10:46 Albuterol/Ipratropium (Duoneb) Rt Margarita 3 Ml Nebu INH 10/01/25 22:59 3 ml Q4HRRT SILVIA Administration Citalopram Hydrobromide 20 mg 09/02/25 21:00 Citalopram 20 Mg Tablet PO 10/02/25 20:59 HS SILVIA Guaifenesin 100 mg 09/01/25 21:28 Guaifenesin Syrup 200 Mg/10 Ml Udc PO 10/01/25 21:27 QID PRN COUGH Protocol Heparin Sodium (Porcine) 5,000 unit 09/01/25 22:00 09/02/25 07:28 Heparin Sod Inj 5000 Unit/Ml Vial SC 09/15/25 21:59 5,000 unit Q8HR SILVIA Administration Piperacillin/Tazobactam/Dextrose 3.375 gm in 50 mls @ 100 mls/hr 09/02/25 06:21 09/02/25 09:46 Zosyn IV 09/09/25 06:20 100 mls/hr Q8HR SILVIA Administration Protocol Vancomycin/Sodium Chloride 200 mls @ 120 mls/hr 09/02/25 10:00 09/02/25 11:14 Vancomycin/Ns 1 Gm Ivpb IV 09/09/25 09:59 120 mls/hr Q12H SILVIA Administration Protocol Magnesium Sulfate 4 gm in 50 mls @ 12.5 mls/hr 09/02/25 08:30 09/02/25 09:46 Magnesium Sulfate Ivpb IV 09/02/25 12:29 12.5 mls/hr X1 ONE Administration Ibuprofen 400 mg 09/01/25 21:22 Ibuprofen Tab 400 Mg Tablet PO 10/01/25 21:21 Q6HR PRN Fever > 100.3 Protocol Lorazepam 0.5 mg 09/01/25 23:45 09/02/25 00:00 Lorazepam 0.5 Mg Tablet PO 09/06/25 23:44 Not Given On Hold: 09/02/25 03:23 BID SILVIA Memantine 10 mg 09/02/25 09:00 09/02/25 09:32 Memantine Hcl 5 Mg Tablet PO 10/02/25 08:59 Not Given BID SILVIA Ondansetron HCl 4 mg 09/01/25 21:22 Ondansetron Inj 2 Mg/Ml Inj 2 Ml IVP 10/01/25 21:21 Q6H PRN NAUSEA OR VOMITING Protocol Pharmacy Consult 1 each 09/02/25 09:00 Vancomycin Pharmacy To Dose 1 Each Each IV 10/02/25 08:59 QDAY PRN PROTOCOL Polyethylene Glycol 17 gm 09/02/25 11:00 Polyethylene Glycol 17 Gm Packet PO 10/02/25 10:59 QDAY SILVIA Risperidone 1 mg 09/02/25 09:00 09/02/25 09:32 Risperidone 1 Mg Tablet PO 10/02/25 08:59 Not Given BID SILVIA Sennosides 1 tab 09/02/25 09:00 09/02/25 09:32 Senna/Docusate Sod 1 Tab Tablet PO 10/02/25 08:59 Not Given QDAY SILVIA Protocol Plan 64 yo female with PMHx of Alzheimer's disease, HTN, HLD, asthma, and hemorrhoids presented with generalized shaking episode in setting of high fevers admitted for the evaluation and management of pneumonia and UTI. #Sepsis 2/2 UTI vs PNA #Acute on chronic hypoxic respiratory failure 2/2 CAP Patient meets sepsis criteria due to fever, tachycardia, tachypnea, leukocytosis with neutrophilic predominance and end organ damage as seen by elevated lactate 3.1 on admission. Patient was experiencing productive cough for x3 weeks with acute worsening in the last 3 days c/f community acquired pneumonia. Outpatient PCP treated her with one time dose of Rocephin that was not continued due to lack of patient followup. Chest X-ray shows early bilateral perihilar pneumonia. Gram stain blood culture was significant for gram negative rods. Abdomen/Pelvis CT shows abnormal thickening of urinary bladder up to 12 mm c/f cystitis and less likely early bladder carcinoma. UA was significant for 1+ bacteria and 232 WBC c/f possible UTI. She has history of 1 UTI/yr for 3 years. Plan: - Pending blood culture, urine culture, sputum culture - Continue IV Piperacillin/Tazobactam for broad spectrum coverage - Order for Chest Physiotherapy - Duoneb q4h with frequent suctioning - Continuous pulse ox with supplemental O2 PRN. Wean as tolerated when appropriate - Guaifenesin QID #Hemorrhoids #Constipation #Abdominal Distension Patient has known history of hemorrhoids. She reports being constipated and has not had a bowel movement since 08/31. Plan: - Continue Senna/Docusate 1 tab PO qday - Start 17gm Polyethylene Glycol PO qday #Alzheimer's disease Nonverbal, nonambulatory at baseline. Home meds: Lorazapam 1mg BID, Memantine 10 mg BID, Risperidone 1mg BID, Citalopram 20 mg daily Plan: - Hold Lorazapam 1 mg PO BID given decreased alertness and risk of respiratory depression and aspiration - Continue Risperidone 1 mg PO BID, Citalopram 20 mg PO daily #Hypertension Home med: Losartan 50 mg Plan: - Hold antihypertensives given soft BP at this time #Hyperlipidemia Home med: Simvastatin 20 mg Plan: - Hold Simvastatin 20 mg Checklist Dispo: Admit to med [facility] for IV abx Diet: NPO pending swallow study. At home, pt eats pur?e liquid diet. Bowel Reg: Doc-senna silvia daily VTE ppx: heparin subQ GI ppx: n/a Pain mgmt: Tylenol PRN Code status: DNR Patient seen and assessed under supervision of attending physician Dr. Dunn. Ba RODRIGUEZ, Internal Medicine Attending Provider Attestation/Addendum I attest that I was physically present for the evaluation, physical examination, lab and imaging review of the patient with the residents. I discussed the case with the residents and agree with the findings and plans of care as documented above. Patient seen and examined at bedside this morning. Appears comfortable. Continues to be nonverbal, unable to participate in exam, currently at her baseline mental status as per family at bedside. Continues to be on IV Zosyn/UTI. Awaiting culture results. Started on bowel regimen for constipation, patient's last bowel movement was on Tuesday. Adrian Dnun MD
[2025-09-02 12:02] LABS: Reflex Lactate? Y
[2025-09-02 12:32] LABS: Lactic Acid, 3 HR 2.1 mMol/L (0.4-2.0)
--- NOTE | 2025-09-02 13:54 | PC.SS ---
SS met with patient, , and dtr regarding patient's d/c plan. Pt is non verbal. Pt was admitted for UTI, Possible PNA. Dtr confirmed patient's demographic and contact information is correct on facesheet. Pt resides with . Pt transfers with assistance from bed to wheelchair. Pt requires assistance with all ADLs. Family helps care for pt at home. Patient's caregiver is her dtr, Richard. Pt does not utilize O2 at home. Pt is currently on 2 liters of O2. Patient utilizes [facility] on [address]. , Hakeem Jackson is patient's medical decision maker. SS provided verbal choices for d/c to home or SNF. 's choices is for pt to return home upon d/c. Per dtr, pt is not diabetic and is not on dialysis. Pt followed up with PCP 10 days ago. D/C plan: Return home Next of Kin: Hakeem Jackson, , phone# [phone] PCP: Dr. Nito Presley Address: Correct on facesheet
[2025-09-02] MEDS: POLYETHYLENE GLYCOL 17 GM PACKET PO (14:52)
[2025-09-02] MEDS: ACETAMINOPHEN 325 MG TABLET 650 MG PO (16:10)
[2025-09-02] MEDS: MEMANTINE HCL 5 MG TABLET 10 MG PO (20:22)
[2025-09-02] MEDS: CITALOPRAM 20 MG TABLET PO (20:22)
[2025-09-03] VITALS (13 sets, daily range): BP systolic 106–124; BP diastolic 65–80; PULSE 80–106; RESP 18–22; TEMP 36.3–37.6; O2SAT 92–99
[2025-09-03] MEDS: ALBUTEROL/IPRATROPIUM (Duoneb) RT SOL 3 ML NEBU INH ×6 (02:28→22:16)
[2025-09-03] MEDS: PIPER/TAZO 3.375 GM PREMIX 3.375 GM/50 ML BAG IV ×3 (05:06→21:24)
[2025-09-03] MEDS: HEPARIN SOD INJ 5000 UNIT/ML VIAL SC ×3 (05:07→21:24)
[2025-09-03 05:28] LABS: Basophils # (Auto) 0.0 Thou/mm3 (0.0-0.2); Basophils % (Auto) 0 % (0-2.5); Eosinophils # (Auto) 0.1 Thou/mm3 (0.0-0.5); Eosinophils % (Auto) 0 % (0-10); Hematocrit 35.2 % (36.0-46.0); Hemoglobin 11.5 g/dL (12.0-16.0); Immature Granulocytes Auto 0.07 Thou/mm3 (0.00-0.00); Lymphocytes # (Auto) 1.2 Thou/mm3 (1.0-4.8); Lymphocytes % (Auto) 10 % (10-50); Mean Corpuscular HGB Conc 32.7 g/dl (31.0-37.0); Mean Corpuscular Hemoglobin 30.7 pg (25.0-35.0); Mean Corpuscular Volume 94 fL (80-100); Monocytes # (Auto) 1.3 Thou/mm3 (0.0-0.8); Monocytes % (Auto) 11 % (0-12); Neutrophils # (Auto) 9.1 Thou/mm3 (1.8-7.7); Neutrophils % (Auto) 77 % (37-80); Nucleated Red Blood Cell # 0.00 Thou/mm3 (0.00-0.00); Nucleated Red Blood Cell % 0 /100 WBC (0); Platelet Count 140 Thou/mm3 (140-440); RDW Standard Deviation 45.1 fL (36.4-46.3); Red Blood Count 3.74 Miln/mm3 (4.00-5.20); White Blood Count 11.8 Thou/mm3 (3.6-11.0)
[2025-09-03 05:49] LABS: Anion Gap 9 (7-16); BUN/Creatinine Ratio 13 Ratio (12-20); Blood Urea Nitrogen 9 mg/dL (9-23); Calcium 8.4 mg/dL (8.3-10.6); Carbon Dioxide 24.7 mMol/L (20.0-31.0); Chloride 110 mMol/L (98-107); Creatinine (Component) 0.7 mg/dL (0.6-1.3); Estimated Creatinine Clearance 76.9 mL/min (>60); Glucose 170 mg/dL (74-106); Magnesium 1.9 mg/dL (1.6-2.6); Osmolality,Calculated 289 (275-295); Phosphorous 2.6 mg/dL (2.4-5.1); Potassium 3.4 mMol/L (3.4-5.1); Sodium 144 mMol/L (136-145); eGFR > 60 See Note
[2025-09-03] MEDS: MEMANTINE HCL 5 MG TABLET 10 MG PO ×2 (08:05→21:24)
[2025-09-03] MEDS: SENNA/DOCUSATE SOD 1 TAB TABLET PO (08:05)
[2025-09-03] MEDS: Magnesium Sulfate 4 GM Ivpb 4 GM/50 ML BAG IV (08:53)
[2025-09-03] MEDS: POLYETHYLENE GLYCOL 17 GM PACKET PO (08:53)
[2025-09-03 09:09] LABS: Iron 11 mcg/dL (50-170); Percent Iron Saturation 5 % (20-55); Total Iron Binding Capacity 211 mcg/dL (250-425); Unsaturated Iron Binding 200 (225-295)
[2025-09-03 09:12] LABS: Folate 12.80 ng/mL (>5.38); Vitamin B12 301 pg/mL (211-911)
[2025-09-03 10:04] LABS: Ferritin 309 ng/mL (7.3-270.7)
--- NOTE | 2025-09-03 12:13 | ESPR_ITS ---
<Statement entered by Lemuel Torres MD - 09/03/25 15:59> I have personally seen and examined the patient. I agree with the medical student's assessment and plan as documented below. Lemuel Torres DO PGY-2 Internal Medicine - [facility] Documentation for date of: 09/03/25 Subjective Subjective Interval history: No acute events overnight. Patient is still not alert, nonverbal and not back to baseline. She remains in distress with intermittent moaning. Patient has not had any bowel movements. Exam Vital Signs Temp Pulse Resp BP Pulse Ox O2 Del Method O2 Flow Rate 97.7 F 100 21 H 106/76 93 L Nasal Cannula 1 09/03/25 11:43 09/03/25 11:43 09/03/25 11:43 09/03/25 11:43 09/03/25 11:43 09/03/25 11:43 09/03/25 11:43 Narrative Exam General: Patient in mild distress. Appears lethargic and not alert. Nonverbal and nonambulatory. HEENT: Normocephalic, atraumatic. PERRLA, EOMI. Audible upper airway congestion. Cardiac: Regular rate and rhythm, normal S1/S2, no murmurs, rubs, or gallops. Peripheral pulses 2+ and symmetric. No peripheral edema. Lungs: Mildly increased work of breathing. Productive cough with thick phlegm noted; Fine crackles appreciated. Abdomen: Soft, non-tender, non-distended. Extremities: Warm, well-perfused. Skin: Warm, dry, intact. No rashes, lesions, or ecchymoses. Neuro: Lethargic, nonverbal, not following commands. Objective Labs 09/03/25 05:05 09/03/25 05:05 Labs: Laboratory Results - last 24 hr 09/02/25 09/03/25 09/03/25 12:15 05:05 05:05 WBC 11.8 H RBC 3.74 L Hgb 11.5 L D Hct 35.2 L MCV 94 MCH 30.7 MCHC 32.7 RDW Std Deviation 45.1 Plt Count 140 Neut % (Auto) 77 Lymph % (Auto) 10 [place] % (Auto) 11 Eos % (Auto) 0 Baso % (Auto) 0 Neut # (Auto) 9.1 H Lymph # (Auto) 1.2 [place] # (Auto) 1.3 H Eos # (Auto) 0.1 Baso # (Auto) 0.0 Immature Gran # (Auto) 0.07 H Absolute Nucleated RBC 0.00 Immature Gran % 1 H Nucleated RBC % 0 Sodium 144 Potassium 3.4 D Chloride 110 H Carbon Dioxide 24.7 Anion Gap 9 BUN 9 Creatinine 0.7 Estim Creat Clear Calc 76.9 eGFR > 60 BUN/Creatinine Ratio 13 Glucose 170 H Calculated Osmolality 289 Lactic Acid 2.1 H Calcium 8.4 Phosphorus 2.6 Magnesium 1.9 Iron 11 L TIBC 211 L Iron Saturation 5 L Unsat Iron Binding 200 L Ferritin 309 H Cancelled Vitamin B12 301 Folate 12.80 Quality Measures Quality Measures none Assessment & Plan Assessment Current Active Medications: Generic Name Dose Route Start Last Admin Trade Name Freq PRN Reason Stop Dose Admin Acetaminophen 650 mg 09/01/25 21:22 Acetaminophen 325 Mg Tablet PO 10/01/25 21:21 Q6H PRN PAIN SCALE 1-3 (mild Acetaminophen 650 mg 09/02/25 08:13 09/02/25 16:10 Acetaminophen 325 Mg Tablet PO 10/01/25 21:21 650 mg Q6H PRN Administration Fever >100.3 Protocol Albuterol/Ipratropium 3 ml 09/01/25 23:00 09/03/25 11:02 Albuterol/Ipratropium (Duoneb) Rt Margarita 3 Ml Nebu INH 10/01/25 22:59 3 ml Q4HRRT SILVIA Administration Citalopram Hydrobromide 20 mg 09/02/25 21:00 09/02/25 20:22 Citalopram 20 Mg Tablet PO 10/02/25 20:59 20 mg HS SILVIA Administration Guaifenesin 100 mg 09/01/25 21:28 Guaifenesin Syrup 200 Mg/10 Ml Udc PO 10/01/25 21:27 QID PRN COUGH Protocol Heparin Sodium (Porcine) 5,000 unit 09/01/25 22:00 09/03/25 05:07 Heparin Sod Inj 5000 Unit/Ml Vial SC 09/15/25 21:59 5,000 unit Q8HR SILVIA Administration Piperacillin/Tazobactam/Dextrose 3.375 gm in 50 mls @ 100 mls/hr 09/02/25 06:21 09/03/25 05:06 Zosyn IV 09/09/25 06:20 100 mls/hr Q8HR SILVIA Administration Protocol Magnesium Sulfate 4 gm in 50 mls @ 12.5 mls/hr 09/03/25 08:33 09/03/25 08:53 Magnesium Sulfate Ivpb IV 09/03/25 12:32 12.5 mls/hr X1 ONE Administration Ibuprofen 400 mg 09/01/25 21:22 Ibuprofen Tab 400 Mg Tablet PO 10/01/25 21:21 Q6HR PRN Fever > 100.3 Protocol Lorazepam 0.5 mg 09/01/25 23:45 09/02/25 00:00 Lorazepam 0.5 Mg Tablet PO 09/06/25 23:44 Not Given On Hold: 09/02/25 03:23 BID SILVIA Memantine 10 mg 09/02/25 09:00 09/03/25 08:05 Memantine Hcl 5 Mg Tablet PO 10/02/25 08:59 10 mg BID SILVIA Administration Ondansetron HCl 4 mg 09/01/25 21:22 Ondansetron Inj 2 Mg/Ml Inj 2 Ml IVP 10/01/25 21:21 Q6H PRN NAUSEA OR VOMITING Protocol Polyethylene Glycol 17 gm 09/02/25 11:00 09/03/25 08:53 Polyethylene Glycol 17 Gm Packet PO 10/02/25 10:59 17 gm QDAY SILVIA Administration Risperidone 1 mg 09/02/25 09:00 09/03/25 08:05 Risperidone 1 Mg Tablet PO 10/02/25 08:59 1 mg BID SILVIA Administration Sennosides 1 tab 09/02/25 09:00 09/03/25 08:05 Senna/Docusate Sod 1 Tab Tablet PO 10/02/25 08:59 1 tab QDAY SILVIA Administration Protocol Plan 64 yo female with PMHx of Alzheimer's disease, HTN, HLD, asthma, and hemorrhoids presented with generalized shaking episode in setting of high fevers admitted for the evaluation and management of pneumonia and UTI. #Sepsis 2/2 UTI vs PNA #Acute hypoxic respiratory failure 2/2 CAP Patient meets sepsis criteria due to fever, tachycardia, tachypnea, leukocytosis with neutrophilic predominance and end organ damage as seen by elevated lactate 3.1 on admission. Patient was experiencing productive cough for x3 weeks with acute worsening in the last 3 days c/f community acquired pneumonia. Outpatient PCP treated her with one time dose of Rocephin that was not continued due to lack of patient followup. Chest X-ray shows early bilateral perihilar pneumonia. Abdomen/Pelvis CT shows abnormal thickening of urinary bladder up to 12 mm c/f cystitis and less likely early bladder carcinoma. UA was significant for 1+ bacteria and 232 WBC c/f possible UTI. She has history of 1 UTI/yr for 3 years. Blood culture and urine culture positive for gram negative rods. Plan: - Pending ID and BAO for urine/blood culture - Continue IV Piperacillin/Tazobactam for broad spectrum coverage - Duoneb q4h with frequent suctioning - Continuous pulse ox with supplemental O2 PRN. Wean as tolerated when appropriate - Guaifenesin QID #Hemorrhoids #Constipation #Abdominal Distension Patient has known history of hemorrhoids. She reports being constipated and has not had a bowel movement since 08/31. Patient still has no bowel movement overnight. Plan: - Start Biscodyl 10mg - Continue Senna/Docusate 1 tab PO qday - Continue 17gm Polyethylene Glycol PO qday #Anemia of Chronic Disease Patient has low iron 11, low TIBC 211, and low ferritin 309. Hemoglobin dropped to 11.5 and hematocrit 35.2. Plan - Continue to monitor hemoglobin/hematocrit - Treat underlying infection #Alzheimer's disease Nonverbal, nonambulatory at baseline. Home meds: Lorazapam 1mg BID, Memantine 10 mg BID, Risperidone 1mg BID, Citalopram 20 mg daily Plan: - Hold Lorazapam 1 mg PO BID given decreased alertness and risk of respiratory depression and aspiration - Continue Risperidone 1 mg PO BID, Citalopram 20 mg PO daily #Hypertension Home med: Losartan 50 mg Plan: - Hold antihypertensives given soft BP at this time #Hyperlipidemia Home med: Simvastatin 20 mg Plan: - Hold Simvastatin 20 mg Checklist Dispo: Admit to med tele for IV abx Diet: Cardiac diet, dysphagia 2 (moist minced) Bowel Reg: Doc-senna silvia daily VTE ppx: heparin subQ GI ppx: n/a Pain mgmt: Tylenol PRN Code status: DNR Patient seen and assessed under supervision of attending physician Dr. Dunn. Ba Epps [facility], Internal Medicine Attending Provider Attestation/Addendum I attest that I was physically present for the evaluation, physical examination, lab and imaging review of the patient with the residents. I discussed the case with the residents and agree with the findings and plans of care as documented above. Patient seen and examined at bedside this morning. Appears comfortable. Vital signs are stable, saturating well on 1 to 2 L nasal cannula. Lab results show improving WBC. Per, repleted accordingly. Noted to have hemoglobin of 11.5, we will obtain iron panel. Patient had febrile episode overnight, both urine culture and blood culture grew gram-negative rods, we will continue with current IV antibiotics regimen and await final culture results. Will consider switching antibiotics if patient continues to be febrile. Family at bedside stated patient has not had bowel movements for few days, we will adjust her bowel regimen. Adrian Dunn MD
[2025-09-03] MEDS: CITALOPRAM 20 MG TABLET PO (21:24)
[2025-09-03 22:02] LABS: Vancomycin,Trough < 3.0 mcg/mL (5.0-10.0)
[2025-09-04] VITALS (16 sets, daily range): BP systolic 101–133; BP diastolic 71–94; PULSE 77–107; RESP 16–24; TEMP 36.2–37.3; O2SAT 92–99
[2025-09-04] MEDS: ALBUTEROL/IPRATROPIUM (Duoneb) RT SOL 3 ML NEBU INH ×6 (02:17→22:11)
[2025-09-04] MEDS: PIPER/TAZO 3.375 GM PREMIX 3.375 GM/50 ML BAG IV ×2 (05:13→14:14)
[2025-09-04] MEDS: HEPARIN SOD INJ 5000 UNIT/ML VIAL SC ×3 (05:14→21:06)
[2025-09-04 05:32] LABS: Basophils # (Auto) 0.0 Thou/mm3 (0.0-0.2); Basophils % (Auto) 0 % (0-2.5); Eosinophils # (Auto) 0.2 Thou/mm3 (0.0-0.5); Eosinophils % (Auto) 2 % (0-10); Hematocrit 35.2 % (36.0-46.0); Hemoglobin 11.6 g/dL (12.0-16.0); Immature Granulocytes Auto 0.04 Thou/mm3 (0.00-0.00); Lymphocytes # (Auto) 1.3 Thou/mm3 (1.0-4.8); Lymphocytes % (Auto) 16 % (10-50); Mean Corpuscular HGB Conc 33.0 g/dl (31.0-37.0); Mean Corpuscular Hemoglobin 31.1 pg (25.0-35.0); Mean Corpuscular Volume 94 fL (80-100); Monocytes # (Auto) 1.3 Thou/mm3 (0.0-0.8); Monocytes % (Auto) 15 % (0-12); Neutrophils # (Auto) 5.6 Thou/mm3 (1.8-7.7); Neutrophils % (Auto) 66 % (37-80); Nucleated Red Blood Cell # 0.00 Thou/mm3 (0.00-0.00); Nucleated Red Blood Cell % 0 /100 WBC (0); Platelet Count 166 Thou/mm3 (140-440); RDW Standard Deviation 45.4 fL (36.4-46.3); Red Blood Count 3.73 Miln/mm3 (4.00-5.20); White Blood Count 8.5 Thou/mm3 (3.6-11.0)
[2025-09-04 05:47] LABS: Anion Gap 9 (7-16); BUN/Creatinine Ratio 14 Ratio (12-20); Blood Urea Nitrogen 10 mg/dL (9-23); Calcium 8.5 mg/dL (8.3-10.6); Carbon Dioxide 24.8 mMol/L (20.0-31.0); Chloride 108 mMol/L (98-107); Creatinine (Component) 0.7 mg/dL (0.6-1.3); Estimated Creatinine Clearance 76.9 mL/min (>60); Glucose 150 mg/dL (74-106); Magnesium 2.3 mg/dL (1.6-2.6); Osmolality,Calculated 285 (275-295); Phosphorous 2.9 mg/dL (2.4-5.1); Potassium 3.5 mMol/L (3.4-5.1); Sodium 142 mMol/L (136-145); eGFR > 60 See Note
[2025-09-04] MEDS: SENNA/DOCUSATE SOD 1 TAB TABLET PO (08:00)
[2025-09-04] MEDS: MEMANTINE HCL 5 MG TABLET 10 MG PO ×2 (08:00→21:02)
[2025-09-04] MEDS: POLYETHYLENE GLYCOL 17 GM PACKET PO (08:01)
[2025-09-04] MEDS: LOSARTAN POTASSIUM 25 MG TABLET 50 MG PO (08:50)
--- NOTE | 2025-09-04 09:05 | PC.SS ---
Follow up note: On IV antibiotic. Possible skilled nursing antibiotic. Pt will return home upon dc.
--- NOTE | 2025-09-04 11:27 | ESPR_ITS ---
<Statement entered by Lemuel Torres MD - 09/04/25 18:10> I have personally seen and examined the patient. I agree with the medical student's assessment and plan as documented below. Lemuel Torres DO PGY-2 Internal Medicine - [facility] Documentation for date of: 09/04/25 Subjective Subjective Interval history: No acute events overnight. Patient is calmer and in less distress than at admission. She had multiple bowel movements yesterday. She has not had any fevers overnight. Denies chills, nausea or vomiting. Exam Vital Signs Temp Pulse Resp BP Pulse Ox O2 Del Method O2 Flow Rate 98.3 F 79 18 132/81 H 99 Nasal Cannula 1 09/04/25 07:30 09/04/25 10:45 09/04/25 10:45 09/04/25 08:50 09/04/25 10:45 09/04/25 07:30 09/04/25 10:45 Narrative Exam General: Patient in no acute distress. Nonverbal and nonambulatory. HEENT: Normocephalic, atraumatic. PERRLA, EOMI. Audible upper airway congestion. Cardiac: Regular rate and rhythm, normal S1/S2, no murmurs, rubs, or gallops. Peripheral pulses 2+ and symmetric. No peripheral edema. Lungs: Mildly increased work of breathing. Productive cough with thick phlegm presented but improved; shallow breathing present. No crackles or stridor. Abdomen: Soft, non-tender, non-distended. Extremities: Warm, well-perfused. Skin: Warm, dry, intact. No rashes, lesions, or ecchymoses. Neuro: Lethargic, nonverbal, not following commands. Objective Labs 09/05/25 05:22 09/05/25 05:22 Labs: Laboratory Results - last 24 hr 09/03/25 09/04/25 21:08 04:41 WBC 8.5 RBC 3.73 L Hgb 11.6 L Hct 35.2 L MCV 94 MCH 31.1 MCHC 33.0 RDW Std Deviation 45.4 Plt Count 166 Neut % (Auto) 66 Lymph % (Auto) 16 [place] % (Auto) 15 H Eos % (Auto) 2 Baso % (Auto) 0 Neut # (Auto) 5.6 Lymph # (Auto) 1.3 [place] # (Auto) 1.3 H Eos # (Auto) 0.2 Baso # (Auto) 0.0 Immature Gran # (Auto) 0.04 H Absolute Nucleated RBC 0.00 Immature Gran % 1 H Nucleated RBC % 0 Sodium 142 Potassium 3.5 Chloride 108 H Carbon Dioxide 24.8 Anion Gap 9 BUN 10 Creatinine 0.7 Estim Creat Clear Calc 76.9 eGFR > 60 BUN/Creatinine Ratio 14 Glucose 150 H Calculated Osmolality 285 Calcium 8.5 Phosphorus 2.9 Magnesium 2.3 Vancomycin Trough < 3.0 L Quality Measures Quality Measures none Assessment & Plan Assessment Current Active Medications: Generic Name Dose Route Start Last Admin Trade Name Freq PRN Reason Stop Dose Admin Acetaminophen 650 mg 09/01/25 21:22 Acetaminophen 325 Mg Tablet PO 10/01/25 21:21 Q6H PRN PAIN SCALE 1-3 (mild Acetaminophen 650 mg 09/02/25 08:13 09/02/25 16:10 Acetaminophen 325 Mg Tablet PO 10/01/25 21:21 650 mg Q6H PRN Administration Fever >100.3 Protocol Albuterol/Ipratropium 3 ml 09/01/25 23:00 09/04/25 10:45 Albuterol/Ipratropium (Duoneb) Rt Margarita 3 Ml Nebu INH 10/01/25 22:59 3 ml Q4HRRT SILVIA Administration Citalopram Hydrobromide 20 mg 09/02/25 21:00 09/03/25 21:24 Citalopram 20 Mg Tablet PO 10/02/25 20:59 20 mg HS SILVIA Administration Guaifenesin 100 mg 09/01/25 21:28 Guaifenesin Syrup 200 Mg/10 Ml Udc PO 10/01/25 21:27 QID PRN COUGH Protocol Heparin Sodium (Porcine) 5,000 unit 09/01/25 22:00 09/04/25 05:14 Heparin Sod Inj 5000 Unit/Ml Vial SC 09/15/25 21:59 5,000 unit Q8HR SILVIA Administration Piperacillin/Tazobactam/Dextrose 3.375 gm in 50 mls @ 100 mls/hr 09/02/25 06:21 09/04/25 05:13 Zosyn IV 09/09/25 06:20 100 mls/hr Q8HR SILVIA Administration Protocol Ibuprofen 400 mg 09/01/25 21:22 Ibuprofen Tab 400 Mg Tablet PO 10/01/25 21:21 Q6HR PRN Fever > 100.3 Protocol Lorazepam 0.5 mg 09/01/25 23:45 09/02/25 00:00 Lorazepam 0.5 Mg Tablet PO 09/06/25 23:44 Not Given On Hold: 09/02/25 03:23 BID SILVIA Losartan Potassium 50 mg 09/04/25 09:00 09/04/25 08:50 Losartan Potassium 25 Mg Tablet PO 10/04/25 08:59 50 mg QDAY SILVIA Administration Memantine 10 mg 09/02/25 09:00 09/04/25 08:00 Memantine Hcl 5 Mg Tablet PO 10/02/25 08:59 10 mg BID SILVIA Administration Ondansetron HCl 4 mg 09/01/25 21:22 Ondansetron Inj 2 Mg/Ml Inj 2 Ml IVP 10/01/25 21:21 Q6H PRN NAUSEA OR VOMITING Protocol Polyethylene Glycol 17 gm 09/02/25 11:00 09/04/25 08:01 Polyethylene Glycol 17 Gm Packet PO 10/02/25 10:59 17 gm QDAY SILVIA Administration Risperidone 1 mg 09/02/25 09:00 09/04/25 08:00 Risperidone 1 Mg Tablet PO 10/02/25 08:59 1 mg BID SILVIA Administration Sennosides 1 tab 09/02/25 09:00 09/04/25 08:00 Senna/Docusate Sod 1 Tab Tablet PO 10/02/25 08:59 1 tab QDAY SILVIA Administration Protocol Plan 64 yo female with PMHx of Alzheimer's disease, HTN, HLD, asthma, and hemorrhoids presented with generalized shaking episode in setting of high fevers admitted for the evaluation and management of pneumonia and UTI. #Sepsis 2/2 UTI vs PNA #Acute hypoxic respiratory failure 2/2 CAP Patient meets sepsis criteria with fever, tachycardia, tachypnea, leukocytosis with neutrophilic predominance, and elevated lactate (3.1). She reports a 3-week history of productive cough with acute worsening over 3 days, concerning for community-acquired pneumonia. Chest X-ray shows early bilateral perihilar infiltrates. CT Abdomen/Pelvis reveals urinary bladder wall thickening (up to 12 mm) concerning for cystitis versus early malignancy. UA shows 1+ bacteria and 232 WBCs, suggesting UTI. Notably, she has a history of recurrent UTIs (~1/year). Blood culture and urine culture positive for gram negative rods and growth of ESBL bacteria. Patient will require total 7 days of treatment on antibiotics either IV or PO given growth of ESBL bacteria, pending ID consult. Patient and family understand that patient may need PICC line if decided to initiate IV antibiotics. Plan: - Pending ID consult recs for PO vs IV for antibiotic treatment - Continue IV Piperacillin/Tazobactam for broad spectrum coverage - Duoneb q4h with frequent suctioning - Continuous pulse ox with supplemental O2 PRN. Wean as tolerated when appropriate - Guaifenesin QID #Hemorrhoids #Constipation #Abdominal Distension Patient has known history of hemorrhoids. She reports being constipated and has not had a bowel movement since 08/31. Patient now has had multiple bowel movements. Plan: - Continue Senna/Docusate 1 tab PO qday - Continue 17gm Polyethylene Glycol PO qday #Anemia of Chronic Disease Patient has low iron 11, low TIBC 211, and low ferritin 309. Hemoglobin dropped to 11.5 and hematocrit 35.2. Plan - Continue to monitor hemoglobin/hematocrit - Treat underlying infection #Alzheimer's disease Nonverbal, nonambulatory at baseline. Home meds: Lorazapam 1mg BID, Memantine 10 mg BID, Risperidone 1mg BID, Citalopram 20 mg daily Plan: - Hold Lorazapam 1 mg PO BID given decreased alertness and risk of respiratory depression and aspiration - Continue Risperidone 1 mg PO BID, Citalopram 20 mg PO daily #Hypertension Home med: Losartan 50 mg Plan: - Start Losartan 50 mg for elevated BP #Hyperlipidemia Home med: Simvastatin 20 mg Plan: - Hold Simvastatin 20 mg Hospital Management: Dispo: Admit to med tele for IV abx Diet: Cardiac diet, dysphagia 2 (moist minced) Bowel Reg: Doc-senna silvia daily VTE ppx: heparin subQ GI ppx: n/a Pain mgmt: Tylenol PRN Code status: DNR Patient seen and assessed under supervision of attending physician Dr. Dunn. Ba KUNZ-, Internal Medicine Attending Provider Attestation/Addendum I attest that I was physically present for the evaluation, physical examination, lab and imaging review of the patient with the residents. I discussed the case with the residents and agree with the findings and plans of care as documented above. Adrian Dunn MD
--- NOTE | 2025-09-04 11:39 | PD.RESCONSUL ---
HPI Data of Consult Requesting Physician: Adrian Dunn MD Admitting Provider: Jonathon Garcia MD Attending Provider: Adrian Dunn MD Primary Care Provider: Nito Presley MD Consult Narrative Reason for consult: ESBL bacteremia and UTI History of present illness: Ms. Jackson is a 64 y.o female with PMHx significant for bedbound and nonverbal 2/2 Alzheimer's disease, HTN, HLD, asthma not on home O2 who presented to the ED on 09/01 for a witnessed generalized shaking episode lasting 10-15 min and admitted for further workup of sepsis in the setting of UTI vs PNA. Patient's spouse was seen at bedside and history was mainly obtained from chart review and patient's spouse who was belarusian speaking. Throughout hospital stay patient had a fever as high as 104.2F, and has been afebrile for the last 24 hours. ID was consulted For ESBL bacteremia and ESBL UTI and whether to continue with IV antibiotics or transition to p.o. Past medical history: As mentioned above Past surgical history: Hysterectomy Social history: No alcohol, tobacco, recreational drug use. Family history: Diabetes and Alzheimer's Home medications lorazepam, memantine, losartan, risperidone, simvastatin, citalopram Allergies: NKDA cc:: cc: Adrian Dunn MD Review of Systems Review of Systems Systems Reviewed: All systems reviewed, normal except as documented Exam Vital Signs Temp Pulse Resp BP Pulse Ox O2 Del Method O2 Flow Rate 98.3 F 79 18 132/81 H 99 Nasal Cannula 1 09/04/25 07:30 09/04/25 10:45 09/04/25 10:45 09/04/25 08:50 09/04/25 10:45 09/04/25 07:30 09/04/25 10:45 Narrative Exam General Appearance: Pt appears older than stated age, nonverbal however is alert and appears flushed. HEENT: NC/AT, no scleral icterus, no conjunctival pallor, MMM Lungs: Increased inspiratory effort due to patient's baseline shallow breathing. No crackles or stridor or wheezing noted CVS: RRR, S1/S2 heard, no murmurs or rubs appreciated ABD: Soft, non-tender, non-distended, BS + in all 4 quadrants EXT: no deformity/edema/lesions/cyanosis/clubbing, radial pulses 2+ BL, DP pulses 2 + BL SKIN: Skin exam normal without any rashes. Neuro: Alert, nonverbal, unable to follow verbal commands; unable to assess motor strength; bedbound Results Labs 09/05/25 05:22 09/05/25 05:22 Labs: Short CBC 09/04/25 Range/Units 04:41 WBC 8.5 (3.6-11.0) Thou/mm3 Hgb 11.6 L (12.0-16.0) g/dL Hct 35.2 L (36.0-46.0) % Plt Count 166 (140-440) Thou/mm3 BMP 09/04/25 04:41 Sodium 142 Potassium 3.5 Chloride 108 H Carbon Dioxide 24.8 BUN 10 Creatinine 0.7 Glucose 150 H Calcium 8.5 Quality Measures Quality Measures none Medications Home Medications and Allergies Home Medications ?Medication ?Instructions ?Recorded ?Confirmed ?Type Losartan Potassium * (COZAAR *) 50 mg PO QDAY #0 tabs 07/03/14 09/02/25 History memantine 10 mg tablet (Namenda) 10 mg PO BID #0 tabs 02/12/17 09/02/25 History risperidone 1 mg tablet (Risperdal) 1 mg PO BID #0 tabs 07/15/17 09/02/25 History citalopram 20 mg tablet 20 mg PO HS 09/02/25 09/02/25 History lorazepam 1 mg tablet 1 mg PO BID 09/02/25 09/02/25 History simvastatin 20 mg tablet 20 mg PO HS 09/02/25 09/02/25 History Allergies Allergy/AdvReac Type Severity Reaction Status Date / Time No Known Allergies Allergy Verified 09/01/25 13:06 Visit Medications Acetaminophen (Acetaminophen 325 Mg Tablet) 650 mg PO Q6H PRN PRN Reason: PAIN SCALE 1-3 (mild Stop: 10/01/25 21:21 Acetaminophen (Acetaminophen 325 Mg Tablet) 650 mg PO Q6H PRN; Protocol PRN Reason: Fever >100.3 Stop: 10/01/25 21:21 Last Admin: 09/02/25 16:10 Dose: 650 mg Albuterol/Ipratropium (Albuterol/Ipratropium (Duoneb) Rt Margarita 3 Ml Nebu) 3 ml INH Q4HRRT VASYL Stop: 10/01/25 22:59 Last Admin: 09/04/25 10:45 Dose: 3 ml Citalopram Hydrobromide (Citalopram 20 Mg Tablet) 20 mg PO HS [facility] Stop: 10/02/25 20:59 Last Admin: 09/03/25 21:24 Dose: 20 mg Guaifenesin (Guaifenesin Syrup 200 Mg/10 Ml Udc) 100 mg PO QID PRN; Protocol PRN Reason: COUGH Stop: 10/01/25 21:27 Heparin Sodium (Porcine) (Heparin Sod Inj 5000 Unit/Ml Vial) 5,000 unit SC Q8HR [facility] Stop: 09/15/25 21:59 Last Admin: 09/04/25 05:14 Dose: 5,000 unit Piperacillin/Tazobactam/Dextrose (Zosyn) 3.375 gm in 50 mls @ 100 mls/hr IV Q8HR [facility]; Protocol Stop: 09/09/25 06:20 Last Admin: 09/04/25 05:13 Dose: 100 mls/hr Ibuprofen (Ibuprofen Tab 400 Mg Tablet) 400 mg PO Q6HR PRN; Protocol PRN Reason: Fever > 100.3 Stop: 10/01/25 21:21 Lorazepam (Lorazepam 0.5 Mg Tablet) 0.5 mg PO BID [facility] On Hold: 09/02/25 03:23 Stop: 09/06/25 23:44 Last Admin: 09/02/25 00:00 Dose: Not Given Losartan Potassium (Losartan Potassium 25 Mg Tablet) 50 mg PO QDAY [facility] Stop: 10/04/25 08:59 Last Admin: 09/04/25 08:50 Dose: 50 mg Memantine (Memantine Hcl 5 Mg Tablet) 10 mg PO BID [facility] Stop: 10/02/25 08:59 Last Admin: 09/04/25 08:00 Dose: 10 mg Ondansetron HCl (Ondansetron Inj 2 Mg/Ml Inj 2 Ml) 4 mg IVP Q6H PRN; Protocol PRN Reason: NAUSEA OR VOMITING Stop: 10/01/25 21:21 Polyethylene Glycol (Polyethylene Glycol 17 Gm Packet) 17 gm PO QDAY [facility] Stop: 10/02/25 10:59 Last Admin: 09/04/25 08:01 Dose: 17 gm Risperidone (Risperidone 1 Mg Tablet) 1 mg PO BID [facility] Stop: 10/02/25 08:59 Last Admin: 09/04/25 08:00 Dose: 1 mg Sennosides (Senna/Docusate Sod 1 Tab Tablet) 1 tab PO QDAY [facility]; Protocol Stop: 10/02/25 08:59 Last Admin: 09/04/25 08:00 Dose: 1 tab Discontinued Medications Acetaminophen (Acetaminophen Supp 650 Mg Supp) 650 mg RI X1 ONE Stop: 09/01/25 14:02 Last Admin: 09/01/25 14:59 Dose: 650 mg Acetaminophen (Acetaminophen 325 Mg Tablet) 650 mg PO Q6H PRN PRN Reason: Fever >101.5 Stop: 10/01/25 21:21 Bisacodyl (Bisacodyl 10 Mg Supp) 10 mg RI X1 ONE; Protocol Stop: 09/03/25 08:00 Last Admin: 09/03/25 08:53 Dose: 10 mg Citalopram Hydrobromide (Citalopram 20 Mg Tablet) 10 mg PO QDAY [facility] Stop: 10/02/25 08:59 Lactated Ringer's (Lactated Ringers) 1,000 mls @ 999 mls/hr IV .Q1H1M ONE Stop: 09/01/25 16:01 Last Infusion: 09/01/25 16:12 Dose: Infused Lactated Ringer's (Lactated Ringers) 1,000 mls @ 999 mls/hr IV .Q1H1M ONE Stop: 09/01/25 16:01 Last Infusion: 09/01/25 17:24 Dose: Infused Ceftriaxone Sodium/Dextrose (Rocephin/D5w 1gm Iv Premix) 1 gm in 50 mls @ 100 mls/hr IV X1 ONE Stop: 09/01/25 15:31 Last Infusion: 09/01/25 16:35 Dose: Infused Acetaminophen (Ofirmev Inj) 1,000 mg in 100 mls @ 250 mls/hr IV Q6HR [facility] Stop: 09/02/25 18:23 Acetaminophen (Ofirmev Inj) 1,000 mg in 100 mls @ 250 mls/hr IV X1 ONE Stop: 09/01/25 21:01 Last Infusion: 09/01/25 21:08 Dose: Infused Lactated Ringer's (Lactated Ringers) 1,000 mls @ 75 mls/hr IV .[id number] [facility] Stop: 09/02/25 10:49 Last Admin: 09/01/25 21:47 Dose: 75 mls/hr Ceftriaxone Sodium/Dextrose (Rocephin/D5w 1gm Iv Premix) 1 gm in 50 mls @ 100 mls/hr IV QDAY [facility] Stop: 09/09/25 08:59 Azithromycin 500 mg/ Sodium (Chloride) 250 mls @ 250 mls/hr IV 2100 VASYL Stop: 09/07/25 21:59 Azithromycin 500 mg/ Sodium (Chloride) 250 mls @ 250 mls/hr IV X1 ONE Stop: 09/01/25 22:44 Last Infusion: 09/01/25 22:57 Dose: Infused Vancomycin/Sodium Chloride (Vancomycin/Ns 1 Gm Ivpb) 200 mls @ 120 mls/hr IV Q12H [facility]; Protocol Stop: 09/09/25 09:59 Last Admin: 09/02/25 22:04 Dose: 120 mls/hr Magnesium Sulfate (Magnesium Sulfate Ivpb) 4 gm in 50 mls @ 12.5 mls/hr IV X1 ONE Stop: 09/02/25 12:29 Last Admin: 09/02/25 09:46 Dose: 12.5 mls/hr Magnesium Sulfate (Magnesium Sulfate Ivpb) 4 gm in 50 mls @ 12.5 mls/hr IV X1 ONE Stop: 09/03/25 12:32 Last Admin: 09/03/25 08:53 Dose: 12.5 mls/hr Pharmacy Consult (Vancomycin Pharmacy To Dose 1 Each Each) 1 each IV QDAY PRN PRN Reason: PROTOCOL Stop: 10/02/25 08:59 Potassium Chloride (Potassium Chloride 20 Meq Tabcr) 40 meq PO X1 ONE Stop: 09/03/25 07:32 Last Admin: 09/03/25 08:06 Dose: 40 meq Risperidone (Risperidone 1 Mg Tablet) 1 mg PO BID [facility]ASYL Stop: 10/01/25 23:44 Last Admin: 09/02/25 09:32 Dose: Not Given Sodium Chloride (Sodium Chloride Rt 10% 15 Ml Nebu) 5 ml INH X1 ONE Stop: 09/01/25 21:23 Assessment & Plan Plan Ms. Jackson is a 64 y.o female with PMHx significant for bedbound and nonverbal 2/2 Alzheimer's disease, HTN, HLD, asthma not on home O2 who presented to the ED on 09/01 for a witnessed generalized shaking episode lasting 10-15 min and admitted for further workup of sepsis in the setting of UTI vs PNA. ID was consulted For ESBL bacteremia and ESBL UTI and whether to continue with IV antibiotics or transition to p.o. #ESBL bacteremia and ESBL UTI Patient presented with generalized shaking episode and high-grade fever 104F and found to have ESBL bacteremia on 1 of 2 bottles. Repeat blood cultures were negative. Patient also shown to have ESBL UTI. Blood cultures seem to be sensitive to oral Bactrim, and on IV Zosyn. Per patient's spouse, patient does not seem to have any issues with swallowing p.o. pills, and will recommend patient to be transition to oral Bactrim for 7 more days. Patient's O2 requirements also seem to improved, currently on room air, and has been afebrile in the last 24 hours. #Acute on chronic hypoxic respiratory failure 2/2 CAP #Constipation #Hx of Hemorrhoids #Alzheimer's Disease #Hypertension #Hyperlipidemia - Treatment as per primary team Patient's plan and care discussed with my attending, Dr. Gallagher. Wendy Sims MD PGY-3
--- NOTE | 2025-09-04 14:31 | ESPR_ITS ---
Subjective Subjective Interval history: bacteremia. not overtly with pneumonia but on O2 so you may need to clarify that with staff as they seem convinced she has pneumonia but radiology findings more equivocal. ct abd w/o hydro or obstruction so no additional imaging needed at this time Exam Vital Signs Temp Pulse Resp BP Pulse Ox O2 Del Method O2 Flow Rate 97.3 F 77 22 H 114/71 94 L Nasal Cannula 1 09/04/25 12:15 09/04/25 12:15 09/04/25 12:15 09/04/25 12:15 09/04/25 12:15 09/04/25 12:15 09/04/25 10:45 Narrative Exam provides most of the hx. pt exam benign. he tried to call a relative to interpret but they were not available. my trinidadian is not bad. Objective - Internal Medicine Labs 09/04/25 04:41 09/04/25 04:41 Labs: Laboratory Results - last 24 hr 09/03/25 09/04/25 21:08 04:41 WBC 8.5 RBC 3.73 L Hgb 11.6 L Hct 35.2 L MCV 94 MCH 31.1 MCHC 33.0 RDW Std Deviation 45.4 Plt Count 166 Neut % (Auto) 66 Lymph % (Auto) 16 [place] % (Auto) 15 H Eos % (Auto) 2 Baso % (Auto) 0 Neut # (Auto) 5.6 Lymph # (Auto) 1.3 [place] # (Auto) 1.3 H Eos # (Auto) 0.2 Baso # (Auto) 0.0 Immature Gran # (Auto) 0.04 H Absolute Nucleated RBC 0.00 Immature Gran % 1 H Nucleated RBC % 0 Sodium 142 Potassium 3.5 Chloride 108 H Carbon Dioxide 24.8 Anion Gap 9 BUN 10 Creatinine 0.7 Estim Creat Clear Calc 76.9 eGFR > 60 BUN/Creatinine Ratio 14 Glucose 150 H Calculated Osmolality 285 Calcium 8.5 Phosphorus 2.9 Magnesium 2.3 Vancomycin Trough < 3.0 L Assessment & Plan A&P Narrative bacteremia and fever, resolved doubt pneumonia. dementia. alzheimer's type with immobility, advanced po rx ok for the bacteremia. doubt pneumonia Time Spent With Patient Time: Total time spent is greater than 50% in coordination of care (as documented) at patient's floor/unit and/or counseling patient:
[2025-09-04] MEDS: TRIMETHOPRIM/SULFA 160/800 DS TABLET 1 TAB PO (21:02)
[2025-09-04] MEDS: CITALOPRAM 20 MG TABLET PO (21:02)
[2025-09-05] VITALS (11 sets, daily range): BP systolic 103–120; BP diastolic 65–79; PULSE 79–106; RESP 14–95; TEMP 36.4–37.1; O2SAT 92–100; BMI 35.4
[2025-09-05] MEDS: ALBUTEROL/IPRATROPIUM (Duoneb) RT SOL 3 ML NEBU INH ×4 (02:02→14:46)
[2025-09-05] MEDS: HEPARIN SOD INJ 5000 UNIT/ML VIAL SC ×2 (05:18→13:22)
[2025-09-05 05:45] LABS: Basophils # (Auto) 0.1 Thou/mm3 (0.0-0.2); Basophils % (Auto) 1 % (0-2.5); Eosinophils # (Auto) 0.3 Thou/mm3 (0.0-0.5); Eosinophils % (Auto) 4 % (0-10); Hematocrit 38.4 % (36.0-46.0); Hemoglobin 12.5 g/dL (12.0-16.0); Immature Granulocytes Auto 0.04 Thou/mm3 (0.00-0.00); Lymphocytes # (Auto) 1.4 Thou/mm3 (1.0-4.8); Lymphocytes % (Auto) 20 % (10-50); Mean Corpuscular HGB Conc 32.6 g/dl (31.0-37.0); Mean Corpuscular Hemoglobin 30.8 pg (25.0-35.0); Mean Corpuscular Volume 95 fL (80-100); Monocytes # (Auto) 1.2 Thou/mm3 (0.0-0.8); Monocytes % (Auto) 16 % (0-12); Neutrophils # (Auto) 4.2 Thou/mm3 (1.8-7.7); Neutrophils % (Auto) 59 % (37-80); Nucleated Red Blood Cell # 0.00 Thou/mm3 (0.00-0.00); Nucleated Red Blood Cell % 0 /100 WBC (0); Platelet Count 196 Thou/mm3 (140-440); RDW Standard Deviation 46.0 fL (36.4-46.3); Red Blood Count 4.06 Miln/mm3 (4.00-5.20); White Blood Count 7.2 Thou/mm3 (3.6-11.0)
[2025-09-05 06:04] LABS: Anion Gap 12 (7-16); BUN/Creatinine Ratio 14 Ratio (12-20); Blood Urea Nitrogen 10 mg/dL (9-23); Calcium 9.6 mg/dL (8.3-10.6); Carbon Dioxide 24.4 mMol/L (20.0-31.0); Chloride 107 mMol/L (98-107); Creatinine (Component) 0.7 mg/dL (0.6-1.3); Estimated Creatinine Clearance 76.9 mL/min (>60); Glucose 137 mg/dL (74-106); Osmolality,Calculated 285 (275-295); Potassium 3.8 mMol/L (3.4-5.1); Sodium 143 mMol/L (136-145); eGFR > 60 See Note
[2025-09-05 06:48] LABS: Hepatitis C Antibody Non Reactive (Non React)
[2025-09-05 08:47] LABS: HIV (1&2) Antibody Rapid Non-Reactive
[2025-09-05] MEDS: POLYETHYLENE GLYCOL 17 GM PACKET PO (09:29)
[2025-09-05] MEDS: SENNA/DOCUSATE SOD 1 TAB TABLET PO (09:29)
[2025-09-05] MEDS: MEMANTINE HCL 5 MG TABLET 10 MG PO (09:29)
[2025-09-05] MEDS: TRIMETHOPRIM/SULFA 160/800 DS TABLET 1 TAB PO (09:29)
[2025-09-05] MEDS: LOSARTAN POTASSIUM 25 MG TABLET 50 MG PO (09:30)
--- NOTE | 2025-09-05 13:32 | ESCONSULT_ITS ---
RE: FORREST CASPER : 1960 DATE OF CONSULTATION: 09/04/2025 REFERRING PHYSICIAN: Jonathon Garcia MD REASON FOR CONSULTATION: Bacteremia and UTI. HISTORY OF PRESENT ILLNESS: The patient is a 64-year-old woman admitted the other day for apparent UTI and positive blood culture with a positive urine culture as well. She is not a good historian. Her provides most of the history and he does so primarily in Latvian. PAST MEDICAL HISTORY: Other than her dementia, she has no other health problems. No surgeries, accidents, illnesses or injuries. She is bedfast. IMMUNIZATIONS: Last tetanus is not known. She received three COVID vaccines and pneumococcal history is unknown. FAMILY HISTORY: Unremarkable. SOCIAL HISTORY: She lives at home with her . it is unclear who her primary doctor is. Her does not seem to know. Although Dr. Presley is listed. He apparently does recall the name of Dr. Presley. PHYSICAL EXAMINATION: GENERAL: On exam, the patient is arousable, but does not seem to walk or ambulate independently. She is heavyset. She is with her who seems to be exhausted. We tried to reach a family member by phone to serve as an slack line yarder, but they were unavailable, so I communicate through my limited Latvian, which is not bad. He provides most of the history. He denies other health problems, surgeries, accidents, or allergies. Other than her dementia, she seems to not have had any problems. MEDICATIONS: Her medications also suggest some ongoing demenia. She is also on memantine. Please note that the use of antidepressants and antipsychotics in this setting may increase the risk of as it has been associated with treatment of psychosis associated with dementia. She may have hyperlipidemia based on her medications as well. ASSESSMENT: 1. Bacteremia, probably of urinary origin. 2. Pneumonia. I doubt this diagnosis, but it is listed. The staff indicate that the patient is on oxygen for that reason, but she is on about 1 liter per minute. Oxygen saturations are adequate. Furthermore, the imaging was a possibility of pneumonia, but it is not definitive. RECOMMENDATIONS: I will check on her briefly next week if she remains, but she should be ready by Tuesday. DT: 14:49:01 TT: 16:26:00 Ref: [id number] - TID: [id number] MTDD
--- NOTE | 2025-09-05 13:41 | ESDS_ITS ---
<Statement entered by Lemuel Torres MD - 09/05/25 18:11> I have personally seen and examined the patient. I agree with the medical student's assessment and plan as documented below. Lemuel Torres DO PGY-2 Internal Medicine - GME Planned Discharge Date 09/05/25 DS: Providers Provider Date of admission: 09/01/25 21:22 Primary care physician: Nito Presley MD Admitting Provider: Jonathon Garcia MD Attending Provider on Admission: Adrian Dunn MD Consults: 09/02/25 11:08 Referral Speech Therapy Routine Comment: 09/04/25 10:29 Consult to Infectious Diseases Routine Comment: Consulting Provider: Tato Gallagher Attending Provider on DC: Staci Peterson Discharging Provider: Staci Peterson DS: Diagnosis Problem List Completed Was Problem List Reviewed/Reconciled?: Yes Hospital Course Hospital Course Hospital course: 64-year-old woman with PMHx significant for Alzheimer?s dementia (bedbound and nonverbal at baseline), hypertension, hyperlipidemia, and asthma who presented with a witnessed generalized shaking episode lasting 10?15 minutes with high fever in the setting of a respiratory infection and productive cough. Patient was experiencing productive cough for x3 weeks with acute worsening in the 3 days before admission c/f community acquired pneumonia. Outpatient PCP treated her with one time dose of Rocephin that was not continued due to lack of patient followup. In the ED, she was febrile to 104.2?F, tachycardic to 118, and mildly hypotensive. She was hypoxic to 93% on room air, improving to 96% on 2L nasal cannula. Labs revealed leukocytosis (WBC 17.3) with neutrophilic predominance and elevated lactate 3.1, which decreased to 2.5 after fluids. UA was consistent with UTI (positive leukocyte esterase, pyuria, bacteriuria). CXR demonstrated perihilar opacities concerning for pneumonia and vascular congestion. CT abdomen/pelvis showed cystitis and hepatic steatosis. Blood culture and urine culture positive for gram negative rods and growth of ESBL bacteria. ID was consulted for deciding if patient would need prolonged IV antibiotic treatment with PICC line or if she could be continued on PO antibiotics. Patient was continued IV antibiotics with improving symptoms and decrease in WBC. At the time of discharge, the patient was afebrile and hemodynamically stable, maintaining oxygen saturation on room air without respiratory distress. She was at her baseline mentation, nonverbal and bedbound due to advanced Alzheimer?s disease. She was tolerating oral intake with assistance and exhibited no signs of acute infection. Patient is discharged to home with following medications and recommendations: - Take Bactrim 800-160mg tablet by mouth twice a day for pyelonephritis - Continue all other home medications - Please follow-up with your PCP within 1 week of discharge - Ask your PCP to follow-up with urinary bladder thickening noted on CT scan Admission Diagnoses: #Sepsis 2/2 UTI vs PNA, resolved #Acute on chronic hypoxic respiratory failure 2/2 CAP #Constipation #Hx of Hemorrhoids #Alzheimer's Disease #Hypertension #Hyperlipidemia Patient seen and assessed under supervision of attending physician Dr. Dunn. Ba KUNZ-NICHOLAS, Internal Medicine Status at Discharge Overall status at discharge: patient is back to baseline Time Spent with Patient Time attestation: Total time spent providing and/or coordinating discharge services: 35 min Time spent: Greater than 30 minutes Exam Vital Signs Temp Pulse Resp BP Pulse Ox O2 Del Method O2 Flow Rate 97.6 F 85 20 103/65 92 L Room Air 2 09/05/25 12:00 09/05/25 12:00 09/05/25 12:00 09/05/25 12:00 09/05/25 12:00 09/05/25 12:00 09/05/25 07:40 Narrative Exam General: Patient in no acute distress. Nonverbal and nonambulatory. HEENT: Normocephalic, atraumatic. PERRLA, EOMI. Cardiac: Regular rate and rhythm, normal S1/S2, no murmurs, rubs, or gallops. Peripheral pulses 2+ and symmetric. No peripheral edema. Lungs: Mildly increased work of breathing. Productive cough with thick phlegm presented but improved; shallow breathing improved. No crackles or stridor. Abdomen: Soft, non-tender, non-distended. Extremities: Warm, well-perfused. Skin: Warm, dry, intact. No rashes, lesions, or ecchymoses. Neuro: Lethargic, nonverbal, not following commands. Discharge Plan Plan Patient Disposition: HOME (Self Care) Care Plan Goals: Please take Bactrim 800-160mg tablet by mouth twice a day for pyelonephritis Use albuterol nebulizer as needed for respiratory distress/asthma symptoms Continue all other home medications Please follow-up with your PCP within 1 week of discharge or follow-up at the [facility] [address] [place] [address] Ask your PCP to follow-up with urinary bladder thickening noted on CT scan If your symptoms worsen or if you develop new chest pain, shortness of breath, dizziness or loss of consciousness - please come back to the ED immediately. Prescriptions/Referrals Prescriptions/Med Rec: New sulfamethoxazole-trimethoprim 800-160 mg Tablet 1 tab PO BID 7 Days Qty: 14 0RF albuterol sulfate 0.63 mg/3 mL solution for nebulization 0.63 mg inhalation QID PRN (Reason: bronchospasm) Qty: 90 0RF (DME) nebulizer and compressor [All-In-One Nebulizer System] Device See Rx Instructions .Route Qty: 1 0RF Rx Instructions: As directed Continued Losartan Potassium * (COZAAR *) 50 MG tablet 50 mg PO QDAY Qty: 0 memantine [Namenda] 10 MG tablet 10 mg PO BID Qty: 0 risperidone [Risperdal] 1 MG tablet 1 mg PO BID Qty: 0 lorazepam 1 mg tablet 1 mg PO BID simvastatin 20 mg tablet 20 mg PO HS citalopram 20 mg tablet 20 mg PO HS Discontinued meloxicam 15 MG tablet 15 mg PO QDAC Qty: 0 paroxetine HCl 20 MG tablet 20 mg PO QDAC Qty: 0 DONEPEZIL HCL 10 MG TAB.RAPDIS 10 mg PO QDAC Qty: 0 Tramadol Hcl 50 MG tablet 50 mg PO PRN PRN (Reason: PAIN) Qty: 0 ibuprofen 600 MG tablet 600 mg PO Q6HR PRN (Reason: PAIN) Qty: 25 0RF Referrals: Nito Presley MD [Primary Care Provider, Family Practice] Patient/Caregiver Discharge Instructions Education Materials: Urinary Tract Infections in Women, Pyelonephritis Ch Dc Print Language: Taiwanese Stand Alone Forms: [place] Award Info., Patient Portal Info Letter Discharge Order Discharge Orders: Discharge (Routine); Ordered 09/05/25 Ordered By: Lemuel Torres Quality Discharge Quality Measures VTE prophylaxis Attestestation Attestation I attest that I was physically present for the evaluation, physical examination, lab and imaging review of the patient with the residents. I discussed the case with the residents and agree with the findings and plans of care as documented above. Adrian Dunn MD
== END 2025-09-05 16:55 | disposition home or self-care (01) | DRG 871 ==
LOC: SERX 20:40 → SERHOLD 21:37 → S3NX 23:44
PROVIDERS: Internal Medicine Infectious Disease; Nurse Practitioner Family; Registered Nurse General Practice; Student in an Organized Health Care Education/Training Program; Admitting Provider Student in an Organized Health Care Education/Training Program; Emergency Provider Emergency Medicine; PCP Family Medicine; Visit Provider Student in an Organized Health Care Education/Training Program
DX: A41.9 Sepsis, unspecified organism (principal); J18.9 Pneumonia, unspecified organism; J96.21 Acute and chronic respiratory failure with hypoxia; N39.0 Urinary tract infection, site not specified; E87.20 Acidosis, unspecified; F02.80 Dementia in other diseases classified elsewhere, unspecified severity, without behavioral disturbance, psychotic disturbance, mood disturbance, and anxiety; G30.9 Alzheimer's disease, unspecified; I10 Essential (primary) hypertension; D63.8 Anemia in other chronic diseases classified elsewhere; E78.5 Hyperlipidemia, unspecified; J45.909 Unspecified asthma, uncomplicated; K76.0 Fatty (change of) liver, not elsewhere classified; R14.0 Abdominal distension (gaseous); Z66 Do not resuscitate; Z74.01 Bed confinement status; K64.9 Unspecified hemorrhoids; K59.00 Constipation, unspecified; N30.90 Cystitis, unspecified without hematuria; Z79.899 Other long term (current) drug therapy; Z87.440 Personal history of urinary (tract) infections; Z99.3 Dependence on wheelchair
CPT/HCPCS: 36415; 70450; 71045; 74176; 80048; 80053; 80202; 81001; 82607; 82728; 82746; 83540; 83550; 83605; 83615; 83690; 83735; 83880; 84100; 84145; 84484; 85025; 85610; 85730; 86703; 86803; 86850; 86900; 86901; 87040; 87077; 87081; 87086; 87186; 87205; 87502; 87811; 92526; 92610; 93005; 93225; 94640; 94664; 94667; 96361; 96365; 96366; 96372; 99285; A9270; J0131; J0456; J0696; J1644; J2543; J3373; J3475; J7050; J7120